=== PATIENT | female | born 1965 | race Caucasian/White ===

== ENCOUNTER 2018-01-27 20:27 | Inpatient (IN) | payer BC ==
[2018-01-27 20:46] LABS: #Basophils 0.1 thou/uL (0.0-0.2); #Eosinphils 0.3 thou/uL (0.0-0.7); #Lymphocytes 5.1 thou/uL (1.20-3.40); #Monocytes 0.9 thou/uL (0.11-0.59); #Neutrophils 13.1 thou/uL (1.40-6.50); %Basophils 0.5 % (0.0-1.0); %Eosinophils 1.6 % (0.0-10.0); %Monocytes 4.8 % (0.0-10.0); %Neutrophils 67.1 % (42.0-75.0); Hemoglobin 16.8 g/dL (12.0-16.0); Mean Corpuscular HGB CONC 32.8 g/dL (32.0-36.0); Mean Corpuscular Hemoglobin 29.7 pg (27.0-31.0); Mean Corpuscular Volume 90.4 fL (78.0-98.0); Mean Platelet Volume 10.6 fL (7.4-10.4); Platelet Count 189 thou/uL (130-400); RBC Distribution Width 12.4 % (11.5-14.5); Red Blood Cell (RBC) Count 5.67 mill/uL (4.20-5.40); White Blood Cell (WBC) Count 19.5 thou/uL (4.8-10.8)
--- NOTE | 2018-01-27 21:01 | RAD ---
PORTABLE UPRIGHT CHEST ONE VIEW: 01/27/18 HISTORY: 52-year-old female with history of chest pain which began this afternoon. Monitor leads overlie the chest. Mild increased markings in the right infrahilar region and lower lob e. This appear more prominent than the left and could represent some early or mild atypical pneumonia or pneumonitis. The left lung is clear. The heart size is normal. IMPRESSION: Increased markings with probable minimal patchy infiltrate in the right lower lobe infrahilar region raising concern for minimal atypical pneumonia or pneumonitis. Correlate clinically. Consider followu p with upright PA and lateral chest whenever the patient can undergo that study. POS: [facility]
[2018-01-27 21:10] LABS: ALT (SGPT) 18 U/L (8-55); AST (SGOT) 15 U/L (5-34); Albumin 4.5 g/dL (3.5-5.0); Alkaline Phosphatase 114 U/L (40-150); Anion Gap 20 mmol/L (10-20); BUN (Urea Nitrogen) 7 mg/dL (9.8-20.1); Bilirubin, Total 0.4 mg/dL (0.2-1.2); Calc. Creatinine Clearance 0 mL/min (70-130); Calcium 9.9 mg/dL (7.8-10.44); Carbon Dioxide 19 mmol/L (22-29); Chloride 101 mmol/L (98-107); Estimated GFR-MDRD 56; Globulin 3.6 g/dL (2.4-3.5); Glucose 395 mg/dL (70-105); Potassium 3.6 mmol/L (3.5-5.1); Protein, Total 8.1 g/dL (6.0-8.3); Sodium 136 mmol/L (136-145)
[2018-01-27 21:13] LABS: CKMB 1.4 ng/mL (0-6.6); Troponin I Less than 0.010 ng/mL (< 0.028)
[2018-01-27] MEDS ORDERED: cefTRIAXone\\ROCEPHIN 2 GM VIAL ONE (21:53)
[2018-01-27] MEDS ORDERED: Sodium Chloride 0.9% 100 ML ONE ×2 (21:53→22:23)
[2018-01-27] MEDS ORDERED: Acetaminophen 500 MG TAB PO PRN (22:10)
[2018-01-27] MEDS ORDERED: hydrALAZINE 20 MG/ML VIAL SLOW IVP PRN (22:10)
[2018-01-27] MEDS ORDERED: Ondansetron PF 4 MG/2 ML Vial IVP PRN (22:10)
[2018-01-27] MEDS ORDERED: Benzonatate 100 MG CAP PO PRN (22:10)
[2018-01-27] MEDS ORDERED: Diabetic Tussin 200 MG/10 ML UDCUP PO PRN (22:10)
[2018-01-27] MEDS ORDERED: cloNIDine 0.1 MG TAB PO PRN (22:10)
[2018-01-27] MEDS ORDERED: Nitroglycerin 0.4 MG TAB (25 Tab Bottle) SL PRN (22:10)
[2018-01-27] MEDS ORDERED: Bisacodyl 5 MG TAB PO PRN (22:10)
[2018-01-27] MEDS ORDERED: Senokot S 8.6-50 MG TAB PO PRN (22:10)
[2018-01-27 22:13] LABS: Bilirubin Negative (Negative); Blood, Urine Negative (Negative); Clarity CLEAR (Clear); Glucose, Urine (Dipstick) >=1000 mg/dL (Negative); Leukocyte Negative (Negative); Nitrite Negative (Negative); Protein, Urine (Dipstick) Negative (Neg-Trace); Specific Gravity, Urine 1.028 (1.002-1.036); Urobilinogen 0.2 mg/dL (0.2-1.0); pH, Urine 5.5 (5.0-9.0)
[2018-01-27] MEDS ORDERED: Piperacillin/Tazobactam 3.375 GM VIAL ONE (22:23)
[2018-01-27 22:29] LABS: Hemoglobin A1c 10.6 % (4.0-6.0)
[2018-01-27] MEDS ORDERED: HumaLOG 300 UNITS/3 ML VIAL SC PRN (23:09)
[2018-01-27] MEDS ORDERED: Dextrose 50% Abboject 50 ML SYRINGE SLOW IVP PRN (23:09)
[2018-01-27] MEDS ORDERED: Dextrose 5% in Water 1,000 ML IV PRN (23:09)
[2018-01-27] MEDS: Sodium Chloride 0.9% 1,000 ML IV SCH (23:34)
[2018-01-27] MEDS: Azithromycin 500 MG in Sodium Chloride 0.9% 250 ML 250 ML IVPB SCH (23:35)
[2018-01-28 00:01] VITALS: BMI 31.5
[2018-01-28 00:02] LABS: Troponin I 0.053 ng/mL (< 0.028)
[2018-01-28 00:44] LABS: Legionella Urinary Ag Negative (Negative); Strep pneumo Urine Ag NEGATIVE (NEGATIVE)
[2018-01-28] MEDS: Ondansetron PF 4 MG/2 ML Vial IVP PRN ×2 (00:54→21:05)
[2018-01-28] MEDS: traMADol HCl 50 MG TAB PO PRN ×3 (00:54→17:01)
[2018-01-28 02:49] LABS: #Basophils 0.1 thou/uL (0.0-0.2); #Eosinphils 0.3 thou/uL (0.0-0.7); #Lymphocytes 3.9 thou/uL (1.20-3.40); #Monocytes 0.6 thou/uL (0.11-0.59); #Neutrophils 8.1 thou/uL (1.40-6.50); %Basophils 0.9 % (0.0-1.0); %Eosinophils 2.2 % (0.0-10.0); %Monocytes 4.6 % (0.0-10.0); %Neutrophils 62.3 % (42.0-75.0); Mean Corpuscular HGB CONC 34.2 g/dL (32.0-36.0); Mean Corpuscular Hemoglobin 31.1 pg (27.0-31.0); Mean Corpuscular Volume 90.8 fL (78.0-98.0); Mean Platelet Volume 10.3 fL (7.4-10.4); Platelet Count 144 thou/uL (130-400); RBC Distribution Width 12.2 % (11.5-14.5); Red Blood Cell (RBC) Count 4.84 mill/uL (4.20-5.40); White Blood Cell (WBC) Count 13.1 thou/uL (4.8-10.8)
[2018-01-28 03:15] LABS: Troponin I 0.056 ng/mL (< 0.028)
[2018-01-28 03:35] LABS: Anion Gap 14 mmol/L (10-20); BUN (Urea Nitrogen) 10 mg/dL (9.8-20.1); Calc. Creatinine Clearance 113 mL/min (70-130); Calcium 8.9 mg/dL (7.8-10.44); Carbon Dioxide 21 mmol/L (22-29); Chloride 107 mmol/L (98-107); Estimated GFR-MDRD 78; Glucose 295 mg/dL (70-105); Potassium 4.2 mmol/L (3.5-5.1); Sodium 138 mmol/L (136-145)
--- NOTE | 2018-01-28 04:27 | HP ---
DATE OF ADMISSION: 01/27/2018 The patient was seen prior to midnight. PRIMARY CARE PHYSICIAN: None. The patient does not see a physician at all. CHIEF COMPLAINT: Chest pain and shortness of breath. HISTORY OF PRESENT ILLNESS: Ms. Orozco is a 52-year-old female with unknown past medical history as e does not follow up with a physician at all, presented to the emergency room with the above-mentione d complaint. History is mainly obtained by the patient herself and electronic medical records have b een reviewed. Case has been discussed with admitting ER physician. Ms. Orozco presented to the ER with complaints of 2 or 3 days' worth of chest pain. She describes it a s sharp and located substernally without any significant radiation. She denies any palpitation or di aphoresis with it. She denies any arm or jaw paresthesias. She does have some shortness of breath a ssociated with these symptoms today and they concerned her enough for her to be presenting to the ER today. She continues to smoke heavily at 1 pack per day for at least the last 20 years or more. Upon presentation to the ER, she was found to be hypertensive with a blood pressure of 208/128. She denies having ever been told that she has hypertension, but did recall that she has been having heada kiki and some ringing sensation in the ear. She underwent general workup including a chest x-ray, whi ch showed possible right lower lobe infiltrate. Her 12-lead EKG was rather unremarkable without any acute ST or T-wave changes. It did show possibility of left atrial enlargement and sinus tachycardia at 127 beats per minute. She was given IV Zosyn and Rocephin as well as full dose aspirin along wit h IV fluids. She was found to have leukocytosis as well on workup with a WBC count of 19.5 without a ny significant neutrophilia. Her blood sugar was also found to be elevated at 395 and the patient de nies any history of diabetes, though she has significant family history of diabetes in both of her pa rents. She is now being admitted to hospital with possible pneumonia as well as uncontrolled hypertension an d possibly diabetes mellitus, new diagnosis. PAST MEDICAL HISTORY: None as the patient has not followed up with any physician in multiple decades . PAST SURGICAL HISTORY: 1. section. 2. Right knee replacement in 01/2015. 3. History of vocal cord polyp removal. 4. Hysterectomy. 5. Multiple surgeries for ovarian cyst. PSYCHIATRIC HISTORY: Denies any anxiety or depression. SOCIAL HISTORY: Smokes 1 pack of cigarettes per day and drinks 5-6 beer on the weekends. Denies any drug abuse. FAMILY HISTORY: Significant for multiple cardiac aneurysms in her father. He also had AAA, which wa s unrepaired. Her mother had quadruple bypass and kidney cancer with lung metastasis. She also repo rts diabetes mellitus in both of her parents. ALLERGIES: LATEX and MORPHINE. CURRENT MEDICATIONS: None. CODE STATUS: Full code. Discussed with the patient. REVIEW OF SYSTEMS: A 12-point review of systems was done, which is negative except for those mention ed in the history and physical. LABORATORY DATA: CBC showed WBCs 19.5, hemoglobin 16.8. D-dimer less than 0.27. Serum chemistry is unremarkable except for a glucose of 395. Cardiac enzymes within normal limit. Urinalysis shows gl ucosuria and ketones. Chest x-ray by my review shows possible right lower lobe infiltrate, no pulmon rosalia edema, suspect atypical pneumonia or pneumonitis. A 12-lead EKG by my review shows no acute ST o r T-wave changes. PHYSICAL EXAMINATION: VITAL SIGNS: Most recent temperature 98.5, pulse of 101, respirations 18, saturating 93% on room air , blood pressure 158/90. GENERAL: No acute distress. She does appear somewhat anxious, but awake, alert and oriented x3. HEENT: Mucous membrane is moist and pink. No oropharyngeal exudate or erythema. Head is normocepha lic, atraumatic. Pupils equal and reactive to light and accommodation. Extraocular movements intact . NECK: Supple without any lymphadenopathy, JVD or bruit. CHEST: Clear to auscultation without any wheezing, rales or rhonchi. Rate and rhythm is regular wit hout any murmur, rubs or gallops. ABDOMEN: Soft, nontender, nondistended with positive bowel sounds. EXTREMITIES: Free of any cyanosis, clubbing or edema. NEUROLOGIC: Nonfocal. SKIN: Free of any rashes or bruises. Feels warm and dry to touch. PSYCHIATRIC: Anxiety noticed. IMPRESSION AND PLAN: 1. Community-acquired pneumonia. The patient will be treated with IV antibiotics, namely Rocephin a nd azithromycin with IV fluids per the sepsis protocol. Urine culture and blood cultures have been o btained and will be monitored. We will check urinary legionella and pneumococcal antigens. We will also check respiratory viral pathogen by NAAT. 2. Sepsis, likely secondary to community-acquired pneumonia. Treat as per sepsis protocol with IV a ntibiotics and IV fluids and follow the final results of the culture. Urinalysis was done for comple tion and did not show any evidence of urinary tract infection. 3. New diagnosis of diabetes mellitus. I have checked the patient's hemoglobin A1c and it came back elevated at more than 10. The patient will be treated with insulin sliding scale while in the hospi meng, but I have briefly discussed with the long-term options for her. She will be started on metform in prior to discharge with close followup with the primary care physician. We will have dietitian ambrose lk to her for diabetic education. 4. Hypertension. Currently we will monitor it and use p.r.n. antihypertensives. If it continues to be elevated, she would benefit from starting on preferably ANDREW inhibitors or ARBs given the new diag nosis of diabetes mellitus. 5. Tobacco abuse. The patient has been extensively counseled. 6. Family history of coronary artery disease. 7. Code status: Full code. Discussed with the patient. 8. Chest pain, likely secondary to community-acquired pneumonia. Serial cardiac enzymes will be jones nded. We will add nebulizers and oxygen as needed. 9. Add deep venous thrombosis and gastrointestinal prophylaxis and p.r.n. medication order. DISPOSITION: Ms. Orozco is currently being admitted to the hospital for community-acquired pneumonia a nd uncontrolled hypertension with new diagnosis of diabetes as well. Compliance is emphasized as wel l as tobacco abstinence. Further management will depend upon her clinical course, but estimated length of stay at this time is at least 2-3 midnights.
[2018-01-28] MEDS: Acetaminophen 325 MG TAB PO PRN ×2 (06:28→21:05)
[2018-01-28] MEDS: HumaLOG 300 UNITS/3 ML VIAL SC PRN ×3 (06:31→17:05)
[2018-01-28] MEDS: Aspirin 81 mg Enteric Coated Tablet PO SCH (09:20)
[2018-01-28] MEDS: guaiFENesin ER 600 MG TAB PO SCH ×2 (09:20→21:04)
[2018-01-28] MEDS: Enoxaparin Sodium 40 MG/0.4 ML SYRINGE SC SCH (09:21)
[2018-01-28] MEDS: Famotidine 20 MG TAB PO SCH ×2 (09:21→21:05)
[2018-01-28] MEDS: Sodium Chloride 0.9% 1,000 ML IV SCH (14:20)
--- NOTE | 2018-01-28 15:02 | PDOC.PN ---
- Subjective Encounter Start Date: 01/28/18 Encounter Start Time: 12:37 Ms. Orozco was seen today in follow-up of Pneumonia, and newly diagnosed diabetes mellitus. She says she is feeling a little better today but still has some chest pain and cough. She is also a bit anxious about being diagnosed with diabetes mellitus. - Objective MAR Reviewed: Yes Vital Signs & Weight: Vital Signs (12 hours) Temp Pulse Resp BP Pulse Ox 01/28/18 11:55 98.3 F 72 16 142/89 H 94 L 01/28/18 08:00 95 01/28/18 07:55 98.2 F 81 18 142/88 H 95 01/28/18 04:00 98.1 F 90 18 159/87 H 93 L Weight Weight 189 lb 5 oz I&O: 01/27/18 01/28/18 01/29/18 06:59 06:59 06:59 Intake Total 1350 Balance 1350 Result Diagrams: 01/28/18 02:42 01/28/18 02:42 Additional Labs: Accuchecks 01/28/18 05:57 POC Glucose 231 H Phys Exam - Physical Examination HEENT: PERRLA, sclera anicteric Respiratory: no wheezing + rales at the right base, + rhonchi Cardiovascular: RRR, no significant murmur, no rub Gastrointestinal: soft, non-tender, no distention, positive bowel sounds Musculoskeletal: no edema, pulses present Dx/Plan (1) Pneumonia, community acquired Code(s): J18.9 - PNEUMONIA, UNSPECIFIED ORGANISM Status: Acute (2) Diabetes mellitus type 2 in obese Code(s): E11.69 - TYPE 2 DIABETES MELLITUS WITH OTHER SPECIFIED COMPLICATION; E66.9 - OBESITY, UNSPECIFIED Status: Acute (3) Hypertension Code(s): I10 - ESSENTIAL (PRIMARY) HYPERTENSION Status: Acute - Plan * Pneumonia- continue Azithromycin and Rocephin _ WBC count has improved, and there has been no fever * New Onset DM- will start Metformin. Continue SSI. Management Consultant has been consulted * HTN- blood pressure has been elevated as well. She has not seen a physician in 2 years- will start Lisinopril * Likely home tomorrow with new medication for Diabetes and hypertension, and oral antibiotics.
[2018-01-28] MEDS: metFORMIN 500 MG TAB PO SCH (17:02)
[2018-01-28] MEDS: Azithromycin 500 MG in Sodium Chloride 0.9% 250 ML 250 ML IVPB SCH (21:06)
[2018-01-28] MEDS ORDERED: cefTRIAXone\\ROCEPHIN 1 GM in Sodium Chloride 0.9% 100 ML IVPB SCH (22:00)
[2018-01-29] MEDS: Acetaminophen 325 MG TAB PO PRN (02:34)
[2018-01-29 03:27] LABS: #Basophils 0.1 thou/uL (0.0-0.2); #Eosinphils 0.2 thou/uL (0.0-0.7); #Lymphocytes 4.1 thou/uL (1.20-3.40); #Monocytes 0.4 thou/uL (0.11-0.59); #Neutrophils 3.6 thou/uL (1.40-6.50); %Basophils 1.1 % (0.0-1.0); %Eosinophils 2.8 % (0.0-10.0); %Lymphocytes 48.5 % (21.0-51.0); %Monocytes 5.2 % (0.0-10.0); %Neutrophils 42.4 % (42.0-75.0); Hemoglobin 13.3 g/dL (12.0-16.0); Mean Corpuscular HGB CONC 33.1 g/dL (32.0-36.0); Mean Corpuscular Hemoglobin 30.3 pg (27.0-31.0); Mean Corpuscular Volume 91.4 fL (78.0-98.0); Mean Platelet Volume 10.1 fL (7.4-10.4); Platelet Count 121 thou/uL (130-400); RBC Distribution Width 12.1 % (11.5-14.5); Red Blood Cell (RBC) Count 4.38 mill/uL (4.20-5.40); White Blood Cell (WBC) Count 8.4 thou/uL (4.8-10.8)
[2018-01-29 03:51] LABS: Anion Gap 10 mmol/L (10-20); BUN (Urea Nitrogen) 10 mg/dL (9.8-20.1); Calc. Creatinine Clearance 141 mL/min (70-130); Calcium 8.3 mg/dL (7.8-10.44); Carbon Dioxide 22 mmol/L (22-29); Chloride 107 mmol/L (98-107); Estimated GFR-MDRD Greater than 90; Glucose 200 mg/dL (70-105); Potassium 3.7 mmol/L (3.5-5.1); Sodium 135 mmol/L (136-145)
[2018-01-29] MEDS: Sodium Chloride 0.9% 1,000 ML IV SCH (06:08)
[2018-01-29] MEDS: HumaLOG 300 UNITS/3 ML VIAL SC PRN ×2 (06:16→11:03)
[2018-01-29] MEDS: traMADol HCl 50 MG TAB PO PRN (08:16)
[2018-01-29] MEDS: Aspirin 81 mg Enteric Coated Tablet PO SCH (08:17)
[2018-01-29] MEDS: metFORMIN 500 MG TAB PO SCH (08:18)
[2018-01-29] MEDS: Famotidine 20 MG TAB PO SCH (08:18)
[2018-01-29] MEDS: guaiFENesin ER 600 MG TAB PO SCH (08:18)
[2018-01-29] MEDS: Enoxaparin Sodium 40 MG/0.4 ML SYRINGE SC SCH (08:21)
[2018-01-29] MEDS ORDERED: Lisinopril 5 MG TAB PO SCH (09:00)
[2018-01-29 11:21] VITALS: BP 154/93; TEMP 98.7
--- NOTE | 2018-01-29 13:04 | DIS ---
PRIMARY CARE PHYSICIAN: None. DATE OF ADMISSION: 01/27/2018 DATE OF DISCHARGE: 01/29/2018 DISCHARGE DIAGNOSES: 1. Acute bacterial community-acquired pneumonia. 2. Sepsis, present on admission secondary to bronchitis. 3. Diabetes mellitus type 2, new onset with hyperglycemia. 4. Ongoing tobacco abuse. 5. Asymptomatic essential hypertension. CONSULTATIONS: None. PROCEDURES: None. HISTORY AND PHYSICAL: Ms. Orozco is a 52-year-old female with history of tobacco abuse, hypertension, who presents to the emergency department with chest pain and shortness of breath. Workup in the [facility] showed white blood cell count 19.5, undetectable. D-dimer, normal cardiac enzymes, possible right lower lobe infiltrate. Pulse was 101 on admission. She met sepsis criteria and was started on antibiotics and we were subsequently called her admission. HOSPITAL COURSE: The patient was seen and examined by Dr. Tamayo and placed on Rocephin and azithro mycin. She was noted to have a blood sugar over 200 and was started on metformin 500 b.i.d. Sugars improved some, hemoglobin A1c was checked and found to be 10.6. She was given antibiotics and from 01/27/2018 to 01/28/2018, her symptoms improved. By today, her sugars were fairly stable. It is running in the high 100s to low 200s. Her breathing was good. She was on room air and was stable for discharge with outpatient followup. She was seen b y the dietitian to instruct her on a diabetic diet. PHYSICAL EXAMINATION: The patient was seen and examined on the day of discharge. Discharge plan and disposition was discussed with patient face to face at the bedside. DISCHARGE MEDICATIONS: 1. Doxycycline 100 mg p.o. b.i.d. for 5 more days. 2. Guaifenesin ER 1200 mg p.o. b.i.d. 3. Lisinopril 5 mg daily. 4. Metformin 500 mg p.o. b.i.d. FOLLOWUP APPOINTMENTS: Primary care physician. The patient is to be establishing with a new primary care physician next week. DISCHARGE CONDITION: Stable. DISPOSITION: Discharged home via vehicle. DISCHARGE DIET: Heart healthy diabetic diet recommended. DISCHARGE ACTIVITY: As tolerated.
== END 2018-01-29 14:07 | disposition home or self-care (01) | DRG 871 ==
LOC: ERS 20:27 → 2SE 23:01
PROVIDERS: ADMIT Internal Medicine; ATTEND Internal Medicine
DX: A41.9 Sepsis, unspecified organism (principal); J15.9 Unspecified bacterial pneumonia; E66.9 Obesity, unspecified; I10 Essential (primary) hypertension; Z91.81 History of falling; F17.210 Nicotine dependence, cigarettes, uncomplicated; I16.0 Hypertensive urgency; J40 Bronchitis, not specified as acute or chronic; E11.65 Type 2 diabetes mellitus with hyperglycemia; Z68.31 Body mass index [BMI] 31.0-31.9, adult
CPT/HCPCS: 36415; 36416; 71045; 80048; 80053; 81003; 82553; 83036; 84484; 85025; 85379; 87040; 87086; 87633; 87899; 90471; 90732; 93005; 94760; 96361; 96365; 96367; G0009; J0456; J0696; J1650; J2405; J2543; J7050

== ENCOUNTER 2018-02-02 21:04 | Inpatient (IN) | payer BC ==
[2018-02-02] MEDS ORDERED: Nitroglycerin 0.4 MG TAB (25 Tab Bottle) ONE (21:19)
[2018-02-02] MEDS ORDERED: Nitroglycerin 100MG/250ML BOT 250 ML ONE (21:22)
[2018-02-02] MEDS ORDERED: Lidocaine 1% (PF) 30 ML VIAL ONE (21:22)
[2018-02-02] MEDS ORDERED: Heparin 10,000 UNITS/1 ML VIAL ONE (21:22)
[2018-02-02 21:23] LABS: Hemoglobin 15.7 g/dL (12.0-16.0); Mean Corpuscular HGB CONC 33.5 g/dL (32.0-36.0); Mean Corpuscular Hemoglobin 30.8 pg (27.0-31.0); Mean Corpuscular Volume 91.9 fL (78.0-98.0); Mean Platelet Volume 10.2 fL (7.4-10.4); Platelet Count 221 thou/uL (130-400); RBC Distribution Width 12.3 % (11.5-14.5); Red Blood Cell (RBC) Count 5.11 mill/uL (4.20-5.40); White Blood Cell (WBC) Count 21.4 thou/uL (4.8-10.8)
[2018-02-02 21:28] LABS: INR-International Normal Ratio 1.1
[2018-02-02 21:32] LABS: PTT 134.8 SEC (22.9-36.1)
[2018-02-02 21:40] LABS: Band 3 % (5-11); Lymphocytes 24 % (21-51); MDiff Complete? YES; Monocytes 3 % (0-10); Neutrophil 70 % (42-75); PLT Morphology Comment Appears Adequate; RBC Morphology Normal
--- NOTE | 2018-02-02 21:45 | RAD ---
PORTABLE UPRIGHT FRONTAL CHEST RADIOGRAPH 02/02/18 COMPARISON: 01/27/18 HISTORY: Chest pain. FINDINGS: There is increased linear interstitial density in the perihilar regions in both lung bases, not signi ficantly changed when compared to the prior exam. There is no pneumothorax, pleural fluid, focal cons olidation or alveolar edema. IMPRESSION: Perihilar and bibasilar interstitial prominence, not significantly changed. Thus, this is likely on t he basis of chronic interstitial prominence. A degree of interstitial edema cannot be excluded. POS: [facility]
[2018-02-02 21:50] LABS: ALT (SGPT) 25 U/L (8-55); AST (SGOT) 18 U/L (5-34); Albumin 4.2 g/dL (3.5-5.0); Alkaline Phosphatase 92 U/L (40-150); Anion Gap 17 mmol/L (10-20); BUN (Urea Nitrogen) 10 mg/dL (9.8-20.1); Bilirubin, Total 0.4 mg/dL (0.2-1.2); CK (CPK) 53 U/L (29-168); Calc. Creatinine Clearance 0 mL/min (70-130); Calcium 9.9 mg/dL (7.8-10.44); Carbon Dioxide 19 mmol/L (22-29); Chloride 104 mmol/L (98-107); Estimated GFR-MDRD 78; Globulin 3.3 g/dL (2.4-3.5); Glucose 262 mg/dL (70-105); Potassium 3.4 mmol/L (3.5-5.1); Protein, Total 7.5 g/dL (6.0-8.3); Sodium 137 mmol/L (136-145)
[2018-02-02 21:52] LABS: CKMB 1.5 ng/mL (0-6.6); Troponin I 0.019 ng/mL (< 0.028)
[2018-02-02] MEDS ORDERED: Verapamil 5 MG/2 ML VIAL ONE ×2 (21:53→22:01)
[2018-02-02] MEDS ORDERED: hydrALAZINE 20 MG/ML VIAL ONE (22:02)
[2018-02-02] MEDS ORDERED: Ondansetron PF 4 MG/2 ML Vial ONE (22:02)
[2018-02-02] MEDS ORDERED: Nitroglycerin 2% Ointment 1 INCH/1 GM Packet ONE (22:18)
[2018-02-02] MEDS ORDERED: Aggrastat 12.5 MG/250 ML 250 ML ONE (22:35)
[2018-02-02] MEDS ORDERED: TICAGRELOR 90 MG TABLET ONE (23:25)
[2018-02-02] MEDS ORDERED: Morphine 4 MG/ML VIAL SLOW IVP PRN (23:43)
[2018-02-02] MEDS ORDERED: Aggrastat 12.5 MG/250 ML 12.5 MG in Premix Bag 1 BAG IVPB SCH (23:43)
[2018-02-02] MEDS ORDERED: Nitroglycerin 0.4 MG TAB (25 Tab Bottle) SL PRN (23:43)
[2018-02-02] MEDS ORDERED: cloNIDine 0.1 MG TAB PO PRN (23:43)
[2018-02-02] MEDS ORDERED: Sodium Chloride 0.9% 1,000 ML IV SCH (23:45)
[2018-02-02] MEDS ORDERED: Morphine 2 MG/ML SYRINGE ONE (23:46)
[2018-02-02] MEDS ORDERED: Zolpidem Tartrate 5 MG TAB PO PRN (23:48)
[2018-02-02] MEDS ORDERED: Dextrose 5% in Water 1,000 ML IV PRN (23:50)
[2018-02-02] MEDS ORDERED: Dextrose 50% Abboject 50 ML SYRINGE IVP PRN (23:50)
[2018-02-03] VITALS: BMI 28.9
[2018-02-03] MEDS ORDERED: Morphine 2 MG/ML SYRINGE SLOW IVP PRN (00:20)
[2018-02-03] MEDS ORDERED: Zolpidem Tartrate 5 MG TAB ONE (00:44)
[2018-02-03] MEDS ORDERED: Morphine 4 MG/ML VIAL ONE (04:04)
--- NOTE | 2018-02-03 04:09 | HP ---
DATE OF ADMISSION: 02/02/2018 INDICATION FOR PROCEDURE: A 52-year-old female felt that have an acute anterior myocardial infarction. HISTORY OF PRESENT ILLNESS: This very unfortunate 52-year-old female who had some chest discomfort last week was in the emergency room, was diagnosed with pneumonia, also had new onset diabetes. She has noticed that she has some pain on and off during the week and then about an hour ago, she started having more significant pain in the chest radiating to the right neck area and also to the back. She also became nauseated, diaphoretic. She presented to emergency room. White blood cell count was 21,000. She continues to have pain. She has been given nitroglycerin as well as heparin and the pain is persisting. She is very uncomfortable appearing. She has also had a low-grade fever. She has been given 4000 units of heparin as well as nitroglycerin. She was given, I believe a physician in the last time, she was in the emergency room, but she has not seen any physician. She does not routinely follow up physicians. She has not seen by recently. She continues to smoke. She smoked up to a pack a day for 20 years and recently drop down to about half a pack a day. She also has hypertension and diabetes, uncertain about the cholesterol level. ALLERGIES: She is allergic to LATEX AND MORPHINE. SOCIAL HISTORY: She is . She continues to smoke. She has alcohol 3 to 5 beers on the weekend. She is a stay at home . MEDICATIONS: At home included metformin. She has been on doxycycline, lisinopril, Mucinex, and Tylenol. REVIEW OF SYSTEMS: She wears glasses. She continues to smoke. She has some dizziness. Otherwise, review of systems, 12-point review of systems unremarkable except what was noted in the history of present illness. PHYSICAL EXAMINATION: GENERAL: Reveals a middle-aged female who is in some mild distress at this time and is not comfortable. She is unable to sit down or lie down just very long. She continues to rise in the bed and says that she is having chest pain and back pain. She describes just as a pain. She has no longer diaphoretic. VITAL SIGNS: Her blood pressure is 174/115, heart rates in the 70s and shows a sinus rhythm, decreased R-wave in V1 through V3. Previously, she did have an R- wave in V3 and EKG approximately a week ago. At this time, the R-wave has decreased further. She has slight ST segment elevation in V4. HEENT: Shows head to be normocephalic and atraumatic. Carotid pulses are present. I did not hear any significant bruits. CHEST: Clear to auscultation. No rales, rhonchi, or wheezing. CARDIOVASCULAR: Exam reveals a regular rate and rhythm, normal S1, S2 noted. There were no significant S3, S4 noted. There were no significant murmurs, heaves, thrills, bruits, or rubs. ABDOMEN: Shows obesity with positive bowel sounds. No organomegaly or masses are noted. Femoral pulses are present. EXTREMITIES: Showed no clubbing, cyanosis, or edema. Pedal pulses are also present. NEUROLOGIC: She appears to be intact. SKIN: Warm and dry. EKG as noted shows sinus rhythm with decreased R-wave progression in V1 through V3 and also slight ST segment elevation in V4. No significant reciprocal changes are noted. She will be advised to undergo cardiac catheterization in the emergent basis to determine whether or not she has any severe underlying coronary artery disease. If not, then she may be having an aortic problem, but she has been given heparin, did not see anything otherwise acute on the EKG except for the mild ST segment elevations in V4. Given her degree of discomfort and pain, the EKG does not necessarily correlate with what I am seeing at this time, but just to be on the safe side, she will be advised to undergo cardiac catheterization. We did discuss the procedure and the risks to include bleeding, infection, possibly a myocardial infarction, CVA, renal insufficiency, allergic contrast reaction even the possibility of . She understands and agrees to proceed with emergent cardiac catheterization and then she continues to have chest pain. IMPRESSION: 1. Acute anterior MT, STEMI, ongoing continued chest pain. Emergent cardiac cath. 2. History of diabetes. This will be dealt with by the primary care service. 3. History of tobacco abuse. She has been encouraged to stop smoking in the past. 4. Recent diagnosis of pneumonia. We will continue to follow this. 5. Elevated white blood cell count of 21,000 previously was about 19,000. She has been on antibiotics and we will need to continue these medications at this time. Further recommendations will be after the cardiac catheterization to evaluate for possible underlying coronary artery disease. JACLYN
[2018-02-03 05:14] LABS: ALT (SGPT) 51 U/L (8-55); AST (SGOT) 259 U/L (5-34); Alkaline Phosphatase 86 U/L (40-150); Anion Gap 17 mmol/L (10-20); BUN (Urea Nitrogen) 9 mg/dL (9.8-20.1); Bilirubin, Total 0.4 mg/dL (0.2-1.2); Calc. Creatinine Clearance 118 mL/min (70-130); Calcium 9.1 mg/dL (7.8-10.44); Carbon Dioxide 20 mmol/L (22-29); Chloride 106 mmol/L (98-107); Estimated GFR-MDRD 90; Globulin 2.9 g/dL (2.4-3.5); Glucose 278 mg/dL (70-105); Potassium 3.5 mmol/L (3.5-5.1); Protein, Total 6.9 g/dL (6.0-8.3); Sodium 139 mmol/L (136-145)
[2018-02-03 06:09] LABS: #Basophils 0.1 thou/uL (0.0-0.2); #Lymphocytes 2.9 thou/uL (1.20-3.40); #Monocytes 0.8 thou/uL (0.11-0.59); #Neutrophils 16.4 thou/uL (1.40-6.50); %Basophils 0.3 % (0.0-1.0); %Eosinophils 0.2 % (0.0-10.0); %Lymphocytes 14.4 % (21.0-51.0); %Monocytes 3.9 % (0.0-10.0); %Neutrophils 81.1 % (42.0-75.0); Hemoglobin 15.2 g/dL (12.0-16.0); Mean Corpuscular HGB CONC 33.1 g/dL (32.0-36.0); Mean Corpuscular Hemoglobin 29.6 pg (27.0-31.0); Mean Corpuscular Volume 89.4 fL (78.0-98.0); Platelet Count 235 thou/uL (130-400); RBC Distribution Width 12.2 % (11.5-14.5); Red Blood Cell (RBC) Count 5.14 mill/uL (4.20-5.40); White Blood Cell (WBC) Count 20.2 thou/uL (4.8-10.8)
[2018-02-03 06:48] LABS: Troponin I 139.795 ng/mL (< 0.028)
[2018-02-03] MEDS ORDERED: HumaLOG 300 UNITS/3 ML VIAL ONE (07:27)
[2018-02-03] MEDS: HumaLOG 300 UNITS/3 ML VIAL SC PRN ×2 (07:30→11:01)
[2018-02-03] MEDS ORDERED: Aspirin 81 mg Enteric Coated Tablet ONE (08:53)
[2018-02-03] MEDS ORDERED: Lisinopril 10 MG TAB ONE (08:54)
[2018-02-03] MEDS: Lisinopril 10 MG TAB PO SCH ×2 (08:58→20:19)
[2018-02-03] MEDS: Carvedilol 6.25 MG TAB PO SCH ×2 (08:59→20:19)
[2018-02-03] MEDS ORDERED: Lisinopril 5 MG TAB PO SCH (09:00)
[2018-02-03] MEDS ORDERED: Carvedilol 3.125 MG TAB PO SCH ×2 (09:00→11:00)
[2018-02-03] MEDS: Carvedilol 3.125 MG TAB ONE ×2 (09:14→10:49)
[2018-02-03] MEDS: Ondansetron PF 4 MG/2 ML Vial ONE (09:30)
[2018-02-03] MEDS ORDERED: Carvedilol 3.125 MG TAB ONE (10:45)
[2018-02-03] MEDS ORDERED: ALPRAZolam 0.25 MG TAB ONE (10:45)
[2018-02-03] MEDS: Cefuroxime Axetil 250 MG TAB PO SCH ×2 (10:49→20:18)
[2018-02-03] MEDS: TICAGRELOR 90 MG TABLET PO SCH ×2 (10:49→20:18)
[2018-02-03] MEDS ORDERED: ALPRAZolam 0.25 MG TAB PO PRN (11:01)
[2018-02-03 11:42] LABS: #Eosinphils 0.1 thou/uL (0.0-0.7); #Lymphocytes 3.4 thou/uL (1.20-3.40); #Monocytes 0.8 thou/uL (0.11-0.59); #Neutrophils 11.4 thou/uL (1.40-6.50); %Basophils 0.1 % (0.0-1.0); %Eosinophils 0.3 % (0.0-10.0); %Lymphocytes 21.5 % (21.0-51.0); %Monocytes 5.3 % (0.0-10.0); %Neutrophils 72.8 % (42.0-75.0); Hemoglobin 14.1 g/dL (12.0-16.0); Mean Corpuscular HGB CONC 33.3 g/dL (32.0-36.0); Mean Corpuscular Hemoglobin 30.4 pg (27.0-31.0); Mean Corpuscular Volume 91.2 fL (78.0-98.0); Mean Platelet Volume 9.8 fL (7.4-10.4); Platelet Count 199 thou/uL (130-400); RBC Distribution Width 12.3 % (11.5-14.5); Red Blood Cell (RBC) Count 4.65 mill/uL (4.20-5.40); White Blood Cell (WBC) Count 15.6 thou/uL (4.8-10.8)
[2018-02-03] MEDS ORDERED: glipiZIDE 10 MG TAB PO SCH (11:49)
[2018-02-03] MEDS: Sodium Chloride 0.9% 1,000 ML IV SCH ×2 (12:37→23:28)
[2018-02-03 12:41] LABS: Critical Call Chem Troponin I RESULT DECREASING; Troponin I 109.958 ng/mL (< 0.028)
[2018-02-03] MEDS ORDERED: Nitroglycerin 2% Ointment 1 INCH/1 GM Packet TOP SCH (14:00)
[2018-02-03] MEDS: Acetaminophen 325 MG TAB PO PRN ×2 (14:01→20:18)
[2018-02-03] MEDS: Ondansetron PF 4 MG/2 ML Vial IVP PRN (14:02)
--- NOTE | 2018-02-03 15:43 | CON ---
DATE OF CONSULTATION: 02/03/2018 HISTORY OF PRESENT ILLNESS: Janee Orozco is a 52-year-old female, a 2 pack a day smoker, who w as recently discharged from the hospital with a diagnosis of presumed pneumonia, comes in last night with chest pain, left anterior radiation, nausea and vomiting. Denied any coughing or wheezing. She has previous bouts of pneumonia. She went to the cardiac microbiology lab assistant last night, Dr. Son. Please review her note and apparently a single stent was placed in. She is back in the ICU right now. The patient states that she denies any difficulty breathing on a regular day. Denies any coughing or wheezing. She takes no inhalers. PAST MEDICAL HISTORY: Recently diagnosed diabetes, hypertension. PAST SURGICAL HISTORY: , right total knee, vocal cord surgery, hysterectomy, ovarian cyst. ALLERGIES: None. SOCIAL HISTORY: She is presently unemployed. MEDICATIONS: From home had included metformin 500 twice a day, Zestril 5 a day, doxycycline 100 twic e a day. SOCIAL/FAMILY HISTORY: As noted. REVIEW OF SYSTEMS: Ten-point negative. PHYSICAL EXAMINATION: VITAL SIGNS: Sats are 97% on room air, pulse is 100, blood pressure 157/81, respiration rate 18. GENERAL: She is in no distress. CHEST: Decreased breath sounds. No wheezing. CARDIAC: Normal S1, S2. No gallops. ABDOMEN: Soft, no masses. LABORATORY DATA: White count 20,000, H and H 15 and 46, platelet count is normal. Electrolytes are normal. Troponin is elevated. IMPRESSION: 1. Acute anterior myocardial infarction, status post stent. 2. Chronic obstructive pulmonary disease with bronchitis. 3. Leukocytosis. PLAN: Continue cardiac care. Empiric p.o. antibiotics. We will follow. Consultation note, 70 minutes, 50% in direct patient care.
[2018-02-03] MEDS: glipiZIDE 5 MG TAB PO SCH (16:27)
--- NOTE | 2018-02-03 17:25 | CON ---
DATE OF CONSULTATION: 02/03/2018 REASON FOR CONSULTATION: Comanagement of medical issues. HISTORY OF PRESENT ILLNESS: The patient gives history of having retrosternal chest pain radiating to right side of her neck yesterday at around 8:30 p.m. She has had cold sweats and was shaking and wa s also associated with nausea. Patient says she had come a week back to the emergency room and was d iagnosed with pneumonia on the and was given antibiotics. She was also told she had diabetes ba sed on the labs. Her initial EKG on arrival showed anteroseptal wall STEMI and STEMI activation was done. The patient has had cardiac catheterization done by Dr. Son and has had stent placed to LAD. Currently, has no chest pain, palpitation, PND or orthopnea. No complaints of cough or fever. PAST MEDICAL/SURGICAL HISTORY: Newly diagnosed diabetes mellitus type 2, hypertension, anterior wall STEMI status post stent to LAD last night, right total knee replacement, hernia repair, hysterectomy , right breast cyst removed, ovarian cyst removed, appendectomy, polyps on her vocal cord. CURRENT MEDICATIONS: Patient was on doxycycline 100 mg twice daily, lisinopril 5 mg daily, metformin 500 mg p.o. twice daily. ALLERGIES: LATEX. PERSONAL HISTORY: Quit smoking prior to this hospitalization and was smoking one pack a day for a lo ng time. Drinks on social occasions. Does not abuse drugs. Lives with her . FAMILY HISTORY: Both parents have history of coronary artery disease and diabetes. Both are living. REVIEW OF SYSTEMS: The following complete review of systems was negative, unless otherwise mentioned in the HPI or below: Constitutional: Weight loss or gain, ability to conduct usual activities. Sk in: Rash, itching. Eyes: Double vision, pain. ENT/Mouth: Nose bleeding, neck stiffness, pain, ten derness. Cardiovascular: Palpitations, dyspnea on exertion, orthopnea. Respiratory: Shortness of breath, wheezing, cough, hemoptysis, fever or night sweats. Gastrointestinal: Poor appetite, abdomi nal pain, heartburn, nausea, vomiting, constipation, or diarrhea. Genitourinary: Urgency, frequency , dysuria, nocturia. Musculoskeletal: Pain, swelling. Neurologic/Psychiatric: Anxiety, depression . Allergy/Immunologic: Skin rash, bleeding tendency. CODE STATUS: FULL. Power of state's attorney is her . PHYSICAL EXAMINATION: GENERAL: The patient is a 52-year-old female who is currently not in any acute distress. VITAL SIGNS: Blood pressure 158/110, pulse 110 per minute, respiratory rate 18 per minute, temperatu re 98.8 degrees Fahrenheit, saturating 94% on room air. NECK: Supple, no elevated JVD. HEENT: Extraocular muscles intact. Pupils reacting to light. Oral cavity mucous membranes are mois t. No exudates or congestion. CARDIOVASCULAR: S1, S2 heard. Regular rhythm. RESPIRATORY: Air entry 1+ bilateral. Scattered rhonchi plus no wheezes. ABDOMEN: Soft, bowel sounds heard. No tenderness, rigidity or guarding. EXTREMITIES: No peripheral edema or calf tenderness. VASCULAR SYSTEM: Peripheral pulses 1+ bilateral, no ischemic ulcerations or gangrene. CENTRAL NERVOUS SYSTEM: No gross focal deficits noted. Patient is alert, awake, oriented well. PSYCHIATRIC: The patient's mood is euthymic. No hallucinations or delusions. LABORATORY AND X-RAY FINDINGS: The patient has had cardiac catheterization done yesterday by Dr. Fatmata zamora and has had stent placed to LAD. White count of 20, H and H 15 and 46, platelet count 235 with 81% neutrophils on admission. Today's white count is 15 this morning. ACT yesterday evening at 10:50 w as 253. BUN 9, creatinine 0.6, serum glucose 278. AST 259, ALT 51, alkaline phosphatase 86, total b ilirubin 0.4, troponin I 139. CK-MB 1.5. Hemoglobin A1c was 10.6 during her last admission here. C hest x-ray done on admission showed resolving pneumonia. EKG done shows anteroseptal wall ST elevati on VT. CLINICAL IMPRESSION AND PLAN: The patient is admitted to ICU post-cardiac catheterization and stenti ng to LAD. She had anterior wall VT confirmed with cardiac catheterization. She is on aspirin, Lipi tor, Coreg, lisinopril, and Brilinta for now. She is on Humalog coverage. The patient will be given oral diet and will place her on glipizide 5 mg twice daily for now. She will be on morphine p.r.n. for pain. DuoNeb q.6 hourly p.r.n. for underlying COPD with a long history of smoking. The patient has also been placed on Ceftin 250 mg twice daily in view of her recent diagnosis of pneumonia.
[2018-02-03] MEDS: Nitroglycerin 2% Ointment 1 INCH/1 GM Packet TOP SCH ×2 (17:52→23:28)
[2018-02-03 18:22] LABS: #Eosinphils 0.1 thou/uL (0.0-0.7); #Lymphocytes 3.9 thou/uL (1.20-3.40); #Monocytes 0.9 thou/uL (0.11-0.59); #Neutrophils 10.3 thou/uL (1.40-6.50); %Basophils 0.3 % (0.0-1.0); %Eosinophils 0.9 % (0.0-10.0); %Lymphocytes 25.7 % (21.0-51.0); %Neutrophils 67.2 % (42.0-75.0); Hemoglobin 13.5 g/dL (12.0-16.0); Mean Corpuscular HGB CONC 33.6 g/dL (32.0-36.0); Mean Corpuscular Hemoglobin 30.2 pg (27.0-31.0); Mean Corpuscular Volume 89.7 fL (78.0-98.0); Mean Platelet Volume 10.1 fL (7.4-10.4); Platelet Count 191 thou/uL (130-400); RBC Distribution Width 12.1 % (11.5-14.5); Red Blood Cell (RBC) Count 4.48 mill/uL (4.20-5.40); White Blood Cell (WBC) Count 15.4 thou/uL (4.8-10.8)
[2018-02-03] MEDS: Atorvastatin Calcium 40 MG TAB PO SCH (20:18)
[2018-02-03 23:57] LABS: #Basophils 0.1 thou/uL (0.0-0.2); #Eosinphils 0.3 thou/uL (0.0-0.7); #Lymphocytes 4.3 thou/uL (1.20-3.40); #Monocytes 0.7 thou/uL (0.11-0.59); #Neutrophils 7.7 thou/uL (1.40-6.50); %Basophils 0.7 % (0.0-1.0); %Eosinophils 2.4 % (0.0-10.0); %Lymphocytes 32.9 % (21.0-51.0); %Monocytes 5.3 % (0.0-10.0); %Neutrophils 58.7 % (42.0-75.0); Mean Corpuscular HGB CONC 33.7 g/dL (32.0-36.0); Mean Corpuscular Hemoglobin 30.3 pg (27.0-31.0); Mean Platelet Volume 10.1 fL (7.4-10.4); Platelet Count 160 thou/uL (130-400); RBC Distribution Width 12.2 % (11.5-14.5); Red Blood Cell (RBC) Count 4.28 mill/uL (4.20-5.40); White Blood Cell (WBC) Count 13.1 thou/uL (4.8-10.8)
[2018-02-04] MEDS: Acetaminophen 325 MG TAB PO PRN (05:27)
[2018-02-04] MEDS: Nitroglycerin 2% Ointment 1 INCH/1 GM Packet TOP SCH (05:28)
[2018-02-04] MEDS: glipiZIDE 5 MG TAB PO SCH ×2 (08:54→17:27)
[2018-02-04] MEDS: TICAGRELOR 90 MG TABLET PO SCH ×2 (08:55→20:17)
[2018-02-04] MEDS: Cefuroxime Axetil 250 MG TAB PO SCH ×2 (08:55→20:17)
[2018-02-04] MEDS: HumaLOG 300 UNITS/3 ML VIAL SC PRN (08:59)
[2018-02-04] MEDS: Ondansetron PF 4 MG/2 ML Vial IVP PRN (10:21)
--- NOTE | 2018-02-04 11:18 | PDOC.PN ---
- Subjective Encounter Start Date: 02/04/18 Encounter Start Time: 10:00 Subjective: no chest pain or palp or sob -: is amb in hallway - Objective MAR Reviewed: Yes Vital Signs & Weight: Vital Signs (12 hours) Temp Pulse Resp BP Pulse Ox 02/04/18 08:48 98.1 F 78 16 100/55 L 95 02/04/18 04:00 98.6 F 88 18 113/66 95 02/04/18 00:00 98.1 F 95 18 105/62 92 L Weight Weight 173 lb 15.115 oz Most Recent Monitor Data Heart Rate from ECG 103 NIBP 128/84 NIBP BP-Mean 98 Respiration from ECG 26 SpO2 94 I&O: 02/03/18 02/04/18 02/05/18 06:59 06:59 06:59 Intake Total 758 3212 Output Total 1950 1600 Balance -1192 1612 Result Diagrams: 02/03/18 23:50 02/03/18 03:37 Additional Labs: Accuchecks 02/04/18 02/03/18 02/03/18 05:20 20:55 16:27 POC Glucose 207 H 184 H 151 H 02/03/18 10:56 POC Glucose 210 H Phys Exam - Physical Examination HEENT: PERRLA, moist MMs Neck: no JVD, supple Respiratory: no wheezing, no rales rhonchi+ Cardiovascular: RRR, no significant murmur Gastrointestinal: soft, non-tender, positive bowel sounds Musculoskeletal: no edema, pulses present Neurological: non-focal, moves all 4 limbs Psychiatric: normal affect, A&O x 3 Dx/Plan (1) STEMI (ST elevation myocardial infarction) Status: Acute Qualifiers: Involved coronary artery: LAD coronary artery Qualified Code(s): I21.02 - ST elevation (STEMI) myocardial infarction involving left anterior descending coronary artery Comment: s/p stent (2) Dyslipidemia Code(s): E78.5 - HYPERLIPIDEMIA, UNSPECIFIED Status: Chronic (3) COPD (chronic obstructive pulmonary disease) Status: Chronic Qualifiers: COPD type: chronic bronchitis Chronic bronchitis type: unspecified Qualified Code(s): J42 - Unspecified chronic bronchitis (4) Tobacco abuse Code(s): Z72.0 - TOBACCO USE Status: Chronic (5) Hypertension Code(s): I10 - ESSENTIAL (PRIMARY) HYPERTENSION Status: Chronic Qualifiers: Hypertension type: essential hypertension Qualified Code(s): I10 - Essential (primary) hypertension (6) Pneumonia, community acquired Code(s): J18.9 - PNEUMONIA, UNSPECIFIED ORGANISM Status: Acute (7) DM type 2 (diabetes mellitus, type 2) Status: Acute Qualifiers: Diabetes mellitus detention insulin use: without watermelon inspector use Diabetes mellitus complication status: with unspecified complications Qualified Code(s) : E11.8 - Type 2 diabetes mellitus with unspecified complications Comment: new onset - Plan is on glipizide, may start metformin in am -: slightly hypotensive, will decrease lisinopril to 5mg bid -: dc nitropaste, continue coreg at current dose -: dc plan per advice -: is on ceftin, nebs, and iv fluids * . Review of Systems - Medications/Allergies Allergies/Adverse Reactions: Allergies Allergy/AdvReac Type Severity Reaction Status Date / Time latex Allergy Verified 04/11/16 13:26 morphine AdvReac Mild Verified 02/03/18 17:57 Medications: Current Medications Acetaminophen (Tylenol) 650 mg PO Q4H PRN PRN Reason: Headache/Fever or Pain Last Admin: 02/04/18 05:27 Dose: 650 mg Alprazolam (Xanax) 0.25 mg PO BID PRN PRN Reason: Anxiety Aspirin (Aspirin Chewable) 81 mg PO DAILY [facility] Last Admin: 02/04/18 08:55 Dose: 81 mg Atorvastatin Calcium (Lipitor) 40 mg PO HS [facility] Last Admin: 02/03/18 20:18 Dose: 40 mg Carvedilol (Coreg) 6.25 mg PO BID [facility] Last Admin: 02/03/18 20:19 Dose: 6.25 mg Cefuroxime Axetil (Ceftin) 250 mg PO Q12HR [facility] Stop: 02/08/18 09:01 Last Admin: 02/04/18 08:55 Dose: 250 mg Clonidine (Catapres) 0.1 mg PO Q2H PRN PRN Reason: SBP GREATER THAN 160 Dextrose/Water (Dextrose 50%) 25 gm IVP PRN PRN PRN Reason: HYPOGLYCEMIA PROTOCOL Glipizide (Glucotrol) 5 mg PO BID-[facility] Last Admin: 02/04/18 08:54 Dose: 5 mg Glucagon (Glucagon) 1 mg IM PRN PRN PRN Reason: HYPOGLYCEMIA PROTOCOL Dextrose/Water (D5w) 1,000 mls @ 0 mls/hr IV INF PRN PRN Reason: HYPOGLYCEMIA PROTOCOL Sodium Chloride (Normal Saline 0.9%) 1,000 mls @ 85 mls/hr IV .[id number] [facility] Last Admin: 02/03/18 23:28 Dose: 1,000 mls Insulin Human Lispro (Humalog) 0 units SC .MODERATE SLIDING SC PRN; Protocol PRN Reason: MODERATE SLIDING SCALE Last Admin: 02/04/18 08:59 Dose: 4 unit Lisinopril (Zestril) 10 mg PO BID [facility] Last Admin: 02/03/18 20:19 Dose: 10 mg Morphine Sulfate (Morphine) 4 mg SLOW IVP Q4H PRN PRN Reason: Chest Pain (7-10) Morphine Sulfate (Morphine) 2 mg SLOW IVP Q4H PRN PRN Reason: CHEST PAIN (4-6) Nitroglycerin (Nitrostat) 0.4 mg SL Q5MIN PRN PRN Reason: Chest Pain Last Admin: 02/03/18 09:33 Dose: 0.4 mg Nitroglycerin (Nitro-Bid 2% Ointment) 0.5 inch TOP Q6HR [facility] Last Admin: 02/04/18 05:28 Dose: 0.5 inch Ondansetron HCl (Zofran) 4 mg IVP Q6H PRN PRN Reason: Nausea/Vomiting Last Admin: 02/04/18 10:21 Dose: 4 mg Sodium Chloride (Flush - Normal Saline) 10 ml IVF PRN PRN PRN Reason: Saline Flush Last Admin: 02/03/18 09:31 Dose: 10 ml Sodium Chloride (Flush - Normal Saline) 10 ml IVF Q12HR [facility] Last Admin: 02/04/18 08:55 Dose: 10 ml Ticagrelor (Brilinta) 90 mg PO BID [facility] Last Admin: 02/04/18 08:55 Dose: 90 mg Zolpidem Tartrate (Ambien) 5 mg PO HSPRN PRN PRN Reason: Insomnia
[2018-02-04] MEDS: Lisinopril 10 MG TAB PO SCH (11:54)
--- NOTE | 2018-02-04 12:49 | PRG ---
DATE OF SERVICE: 02/04/2018 SUBJECTIVE: A 52-year-old female who says she is doing well, no further chest pain or shortness of b reath. OBJECTIVE: VITALS: Sats are 98% on room air. Respirations 16, temperature 98, blood pressure 100/55. CHEST: Decreased breath sounds, no wheezing. CARDIAC: Normal S1, S2, without mass. IMPRESSION: Status post cardiac catheterization, coronary artery disease with acute myocardial infar ction, tobacco abuse, chronic obstructive pulmonary disease. PLAN: Empiric antibiotics. DISPOSITION: As per Cardiology.
[2018-02-04] MEDS: Carvedilol 6.25 MG TAB PO SCH ×2 (13:37→20:18)
[2018-02-04] MEDS: Sodium Chloride 0.9% 1,000 ML IV SCH ×2 (17:27→23:53)
[2018-02-04] MEDS: Lisinopril 5 MG TAB PO SCH (20:18)
[2018-02-04] MEDS: Atorvastatin Calcium 40 MG TAB PO SCH (20:18)
[2018-02-05] MEDS ORDERED: Senokot 8.6 MG TAB PO PRN (00:05)
[2018-02-05 05:47] LABS: #Basophils 0.1 thou/uL (0.0-0.2); #Eosinphils 0.2 thou/uL (0.0-0.7); #Lymphocytes 3.1 thou/uL (1.20-3.40); #Monocytes 0.6 thou/uL (0.11-0.59); #Neutrophils 5.3 thou/uL (1.40-6.50); %Basophils 0.7 % (0.0-1.0); %Eosinophils 2.3 % (0.0-10.0); %Neutrophils 57.1 % (42.0-75.0); Hemoglobin 11.9 g/dL (12.0-16.0); Mean Corpuscular HGB CONC 32.9 g/dL (32.0-36.0); Mean Corpuscular Hemoglobin 30.1 pg (27.0-31.0); Mean Corpuscular Volume 91.3 fL (78.0-98.0); Mean Platelet Volume 10.3 fL (7.4-10.4); Platelet Count 131 thou/uL (130-400); RBC Distribution Width 12.1 % (11.5-14.5); Red Blood Cell (RBC) Count 3.96 mill/uL (4.20-5.40); White Blood Cell (WBC) Count 9.2 thou/uL (4.8-10.8)
[2018-02-05 05:52] LABS: Anion Gap 10 mmol/L (10-20); BUN (Urea Nitrogen) 8 mg/dL (9.8-20.1); Calc. Creatinine Clearance 127 mL/min (70-130); Calcium 8.6 mg/dL (7.8-10.44); Carbon Dioxide 23 mmol/L (22-29); Chloride 109 mmol/L (98-107); Estimated GFR-MDRD Greater than 90; Glucose 140 mg/dL (70-105); Potassium 3.2 mmol/L (3.5-5.1); Sodium 139 mmol/L (136-145)
--- NOTE | 2018-02-05 09:06 | PRG ---
DATE OF SERVICE: 02/05/2018 This morning she is awake, alert, responsive, less short of breath. Sputum is clear. PHYSICAL EXAMINATION: VITAL SIGNS: Sats are 96 on room air, temperature is 98, pulse 78, respiration 15, blood pressure is 108/61. CHEST: Chest reveals decreased breath sounds, no wheezing. CARDIAC: Normal S1, S2. ABDOMEN: Soft, no masses. LABORATORY DATA: White count 9000. Electrolytes are normal. IMPRESSION: 1. Coronary artery disease. 2. Bibasilar infiltrates. 3. Atelectasis. 4. Tobacco abuse. 5. Chronic obstructive pulmonary disease. PLAN: Continue p.o. antibiotics. Disposition as per Cardiology.
[2018-02-05] MEDS: Carvedilol 6.25 MG TAB PO SCH (09:11)
[2018-02-05] MEDS: Lisinopril 5 MG TAB PO SCH (09:11)
[2018-02-05] MEDS: Cefuroxime Axetil 250 MG TAB PO SCH (09:11)
[2018-02-05] MEDS: glipiZIDE 5 MG TAB PO SCH (09:12)
[2018-02-05] MEDS: TICAGRELOR 90 MG TABLET PO SCH (09:12)
[2018-02-05] MEDS: Sodium Chloride 0.9% 1,000 ML IV SCH (09:19)
[2018-02-05] MEDS: HumaLOG 300 UNITS/3 ML VIAL SC PRN (11:37)
--- NOTE | 2018-02-05 11:41 | PDOC.CTH ---
Cardiology Progress Note - Subjective The pt seen and examined. No overnight events. No cardiac complaints. - Objective Vital Signs Temp Pulse Pulse Pulse Resp BP BP 02/05/18 09:11 70 100/55 L 02/05/18 09:07 74 72 137/79 02/05/18 08:00 99 F 70 18 02/05/18 04:15 02/05/18 03:57 98.4 F 81 15 BP BP Pulse Ox Pulse Ox Pulse Ox 02/05/18 09:11 02/05/18 09:07 120/67 99 95 02/05/18 08:00 120/67 95 02/05/18 04:15 96 02/05/18 03:57 108/61 96 Weight 194 lb 9 oz 02/04/18 02/05/18 02/06/18 06:59 06:59 06:59 Intake Total 3212 3075 Output Total 1600 Balance 1612 3075 - Labs Result Diagrams: 02/05/18 05:07 02/05/18 05:07 Troponin/CKMB CK-MB (CK-2) 1.5 ng/mL (0-6.6) 02/02/18 21:07 Troponin I 109.958 ng/mL (< 0.028) H* 02/03/18 11:29 - Assessment/Plan 1. STEMI and S/p PTCA and CB stent to LAD, 40-0% in porx-mid RCA - stable with ASA 81mg qd, Brilinta BID, Coreg 6.25mg BID, Lisinopril 5mg BID, and Lipitor 40mg qd. 2. HTN - stable 3. Dyslipidemia - on Satin 4. DM type 2 - managed by PCP 5. COPD - stable with RA 6. Tobacco abuse - Smoking cessation education given 7. PNA - managed by conveyor belt repairer MAR reviewed * From Cardiac standpoint, the pt is stable to d/c home. F/u within 10 days.
[2018-02-05 11:45] VITALS: BP 116/71; TEMP 98.2
--- NOTE | 2018-02-05 12:15 | PDOC.PN ---
- Subjective Encounter Start Date: 02/05/18 Encounter Start Time: 09:15 Subjective: is amb in hallway, no chest pain or sob - Objective MAR Reviewed: Yes Vital Signs & Weight: Vital Signs (12 hours) Temp Pulse Pulse Pulse Resp BP BP 02/05/18 11:41 98.2 F 74 18 02/05/18 09:11 70 100/55 L 02/05/18 09:07 74 72 137/79 02/05/18 08:00 99 F 70 18 02/05/18 04:15 02/05/18 03:57 98.4 F 81 15 BP BP Pulse Ox Pulse Ox Pulse Ox 02/05/18 11:41 116/71 94 L 02/05/18 09:11 02/05/18 09:07 120/67 99 95 02/05/18 08:00 120/67 95 02/05/18 04:15 96 02/05/18 03:57 108/61 96 Weight Weight 194 lb 9 oz Most Recent Monitor Data Heart Rate from ECG 103 NIBP 128/84 NIBP BP-Mean 98 Respiration from ECG 26 SpO2 94 I&O: 02/04/18 02/05/18 02/06/18 06:59 06:59 06:59 Intake Total 3212 3075 Output Total 1600 Balance 1612 3075 Result Diagrams: 02/05/18 05:07 02/05/18 05:07 Additional Labs: Accuchecks 02/05/18 02/05/18 02/04/18 10:47 06:11 20:44 POC Glucose 222 H 151 H 138 H 02/04/18 16:45 POC Glucose 120 H Phys Exam - Physical Examination HEENT: PERRLA, moist MMs Neck: no JVD, supple Respiratory: no wheezing, no rales Cardiovascular: RRR, no significant murmur Gastrointestinal: soft, non-tender, positive bowel sounds Musculoskeletal: no edema, pulses present Neurological: non-focal, moves all 4 limbs Psychiatric: normal affect, A&O x 3 Dx/Plan (1) STEMI (ST elevation myocardial infarction) Status: Acute Qualifiers: Involved coronary artery: LAD coronary artery Qualified Code(s): I21.02 - ST elevation (STEMI) myocardial infarction involving left anterior descending coronary artery Comment: s/p stent (2) Dyslipidemia Code(s): E78.5 - HYPERLIPIDEMIA, UNSPECIFIED Status: Chronic (3) COPD (chronic obstructive pulmonary disease) Status: Chronic Qualifiers: COPD type: chronic bronchitis Chronic bronchitis type: unspecified Qualified Code(s): J42 - Unspecified chronic bronchitis (4) Tobacco abuse Code(s): Z72.0 - TOBACCO USE Status: Chronic (5) Hypertension Code(s): I10 - ESSENTIAL (PRIMARY) HYPERTENSION Status: Chronic Qualifiers: Hypertension type: essential hypertension Qualified Code(s): I10 - Essential (primary) hypertension (6) Pneumonia, community acquired Code(s): J18.9 - PNEUMONIA, UNSPECIFIED ORGANISM Status: Acute (7) DM type 2 (diabetes mellitus, type 2) Status: Acute Qualifiers: Diabetes mellitus residential insulin use: without rodent exterminator use Diabetes mellitus complication status: with unspecified complications Qualified Code(s) : E11.8 - Type 2 diabetes mellitus with unspecified complications Comment: new onset - Plan hemostable -: d/w , dc pt home -: to check fingerstick, BP and pulse bid x 10 days and record to f/u with PCP * .
--- NOTE | 2018-02-06 00:06 | DIS ---
DATE OF ADMISSION: 02/02/2018 DATE OF DISCHARGE: 02/05/2018 DISCHARGE DISPOSITION: To home. PRIMARY DISCHARGE DIAGNOSES: ST elevation myocardial infarction, anterior wall, status post stenting done to LAD; new-onset diabetes mellitus, type 2; pneumonia. SECONDARY DISCHARGE DIAGNOSES: Dyslipidemia, chronic obstructive pulmonary disease, tobacco abuse, h ypertension. PROCEDURES DONE DURING HOSPITALIZATION: The patient had coronary angiogram done on the day of admiss [facility] for STEMI alert and was found to have had 100% LAD lesion. She had PTCA with stent done for the same. Patient was also found to have had serial lesions in the proximal and mid RCA 40% to 50% for m edical management. Echo with 2D Doppler done showed EF of 45%-50%, apex was akinetic. There was jennifer stolic dysfunction. White count of 21, discharge number of 9, H&H 11 and 36, platelet count 131. Di scharge BUN and creatinine is 8 and 0.6, troponin I peaking up to 139. CK-MB 1.5. DISCHARGE MEDICATIONS: Aspirin 81 mg p.o. daily, Brilinta 90 mg p.o. twice daily, metformin 500 mg p .o. twice daily, glipizide 5 mg daily, lisinopril 5 mg twice daily, Coreg 6.25 mg twice daily, Lipito r 40 mg p.o. at bedtime, Ceftin 250 mg p.o. twice daily for a total of 5 days. ALLERGIES: LATEX and questionable MORPHINE. DISCHARGE PLAN: Patient to follow up with Dr. Son as advised and primary care physician in 1 week. BRIEF COURSE DURING HOSPITALIZATION: Patient initially got admitted on the after STEMI activati on for anterior wall [place]. She was taken to cardiac catheterization by Dr. Son. Patient was found to have had 100% LAD occlusion and had stent placed. Patient also had new diagnosis of diabetes mellit us type 2 and hypertension. Her white count was 21 and initial x-ray was suspicious for possible pne umonia. Patient was on IV antibiotics and has been switched over to Ceftin. She has responded well to above measures. Prior to discharge, she is ambulating and eating well. Patient needs to check he r fingerstick glucose twice daily. Blood pressure and pulse twice daily and record for a period of 1 0 days to follow up with her primary care physician for changes in the medication. She was counseled with regards to dietary compliance and medication compliance. Patient has a followup appointment an d needs to keep of those. Patient was seen and examined on the day of discharge.
--- NOTE | 2018-02-07 08:15 | EKG ---
Test Reason : STAT Blood Pressure : / mmHG Vent. Rate : 103 BPM Atrial Rate : 103 BPM P-R Int : 162 ms QRS Dur : 082 ms QT Int : 346 ms P-R-T Axes : 074 044 049 degrees QTc Int : 453 ms Sinus tachycardia Anteroseptal infarct , age undetermined Abnormal ECG When compared with ECG of 27-JAN-2018 20:32, (Unconfirmed) Anteroseptal infarct is now Present ST elevation now present in Anterior leads T wave inversion now evident in Anterior leads Confirmed by DR. Ulises OCASIO ([id number]) on 02/07/2018 8:15:28 AM Referred By: Confirmed By:DR. Ulises OCASIO
== END 2018-02-05 15:00 | disposition home or self-care (01) | DRG 246 ==
LOC: ERS 21:04 → 2NO 21:43 → CCL 21:52 → CCU 22:31 → 2NO 02-03 16:50
PROVIDERS: ADMIT Internal Medicine Cardiovascular Disease; ATTEND Internal Medicine Cardiovascular Disease
PROC: 027034Z Dilation of Coronary Artery, One Artery with Drug-eluting Intraluminal Device, Percutaneous Approach (ICD-10-PCS; principal; 2018-02-02)
PROC: 02C03ZZ Extirpation of Matter from Coronary Artery, One Artery, Percutaneous Approach (ICD-10-PCS; 2018-02-02)
PROC: 4A023N7 Measurement of Cardiac Sampling and Pressure, Left Heart, Percutaneous Approach (ICD-10-PCS; 2018-02-02)
PROC: B2111ZZ Fluoroscopy of Multiple Coronary Arteries using Low Osmolar Contrast (ICD-10-PCS; 2018-02-02)
PROC: B2151ZZ Fluoroscopy of Left Heart using Low Osmolar Contrast (ICD-10-PCS; 2018-02-02)
DX: I21.09 ST elevation (STEMI) myocardial infarction involving other coronary artery of anterior wall (principal); J18.9 Pneumonia, unspecified organism; J44.0 Chronic obstructive pulmonary disease with (acute) lower respiratory infection; E11.9 Type 2 diabetes mellitus without complications; E78.5 Hyperlipidemia, unspecified; I10 Essential (primary) hypertension; I25.10 Atherosclerotic heart disease of native coronary artery without angina pectoris; F17.210 Nicotine dependence, cigarettes, uncomplicated; E66.9 Obesity, unspecified; Z68.32 Body mass index [BMI] 32.0-32.9, adult; Z88.5 Allergy status to narcotic agent; Z91.040 Latex allergy status; Z79.84 Long term (current) use of oral hypoglycemic drugs; Z79.899 Other long term (current) drug therapy; Z96.651 Presence of right artificial knee joint
CPT/HCPCS: 36415; 36416; 71045; 80048; 80053; 82553; 84484; 85025; 85347; 85610; 85730; 93005; 93010; 93306; 93798; C1725; C1769; C1874; C1887; J0360; J1644; J2001; J2270; J2405; J3246

== ENCOUNTER 2018-03-28 14:23 | Observation (INO) | payer BC ==
[~2018-03-28 14:23] MED LIST: Iopamidol 370 76% 100 ML VIAL ONE
[2018-03-28 15:06] LABS: #Basophils 0.1 thou/uL (0.0-0.2); #Eosinphils 0.3 thou/uL (0.0-0.7); #Lymphocytes 3.1 thou/uL (1.20-3.40); #Monocytes 0.6 thou/uL (0.11-0.59); #Neutrophils 5.1 thou/uL (1.40-6.50); %Basophils 1.1 % (0.0-1.0); %Eosinophils 2.7 % (0.0-10.0); %Lymphocytes 34.2 % (21.0-51.0); %Monocytes 6.9 % (0.0-10.0); %Neutrophils 55.1 % (42.0-75.0); Hemoglobin 13.7 g/dL (12.0-16.0); Mean Corpuscular HGB CONC 34.4 g/dL (32.0-36.0); Mean Corpuscular Hemoglobin 30.2 pg (27.0-31.0); Mean Platelet Volume 9.2 fL (7.4-10.4); Platelet Count 207 thou/uL (130-400); Red Blood Cell (RBC) Count 4.54 mill/uL (4.20-5.40); White Blood Cell (WBC) Count 9.2 thou/uL (4.8-10.8)
[2018-03-28 15:26] LABS: ALT (SGPT) 16 U/L (8-55); AST (SGOT) 13 U/L (5-34); Albumin 4.3 g/dL (3.5-5.0); Alkaline Phosphatase 97 U/L (40-150); Anion Gap 16 mmol/L (10-20); BUN (Urea Nitrogen) 14 mg/dL (9.8-20.1); Bilirubin, Total 0.5 mg/dL (0.2-1.2); CK (CPK) 64 U/L (29-168); Calc. Creatinine Clearance 0 mL/min (70-130); Calcium 9.3 mg/dL (7.8-10.44); Carbon Dioxide 19 mmol/L (22-29); Chloride 106 mmol/L (98-107); Estimated GFR-MDRD 66; Globulin 2.8 g/dL (2.4-3.5); Glucose 91 mg/dL (70-105); Lipase 84 U/L (8-78); Potassium 4.4 mmol/L (3.5-5.1); Protein, Total 7.1 g/dL (6.0-8.3); Sodium 137 mmol/L (136-145)
[2018-03-28] MEDS ORDERED: Nitroglycerin 2% Ointment 1 INCH/1 GM Packet ONE (15:27)
--- NOTE | 2018-03-28 15:34 | RAD ---
SINGLE VIEW CHEST: HISTORY: Chest pain. COMPARISON: 02/02/2018 FINDINGS: Single view of the chest show normal sized cardiomediastinal silhouette. There is no evidence of cons olidation, mass, or pleural effusion. The bones are unremarkable. IMPRESSION: No evidence of acute cardiopulmonary disease. POS: [facility]
[2018-03-28] MEDS ORDERED: Ondansetron ODT 4 MG TAB SL PRN (17:00)
[2018-03-28] MEDS ORDERED: Ondansetron PF 4 MG/2 ML Vial IVP PRN (17:00)
--- NOTE | 2018-03-28 17:04 | CT ---
CTA OF THE CHEST WITH CONTRAST 03/28/18 COMPARISON: None. HISTORY: Chest pain since Monday that radiates to the back and neck. Chills and nausea. TECHNIQUE: Multiple contiguous axial images were obtained in a CTA of the chest with contrast per pulmonary embo lism protocol. 3D oblique MIP reformats and direct coronal reformats were performed. FINDINGS: The pulmonary arteries are well opacified without filling defects to suggest pulmonary emboli. The he art is normal in size without focal cardiac abnormality. No hilar or mediastinal lymphadenopathy are seen. No pneumothorax or pleural effusion are seen. No suspicious pulmonary nodules are seen. No focal infi ltrates are present. Mild degenerative changes are seen in the spine. The visualized subdiaphragmatic structures are unrem arkable. The chest wall soft tissues are unremarkable. IMPRESSION: No evidence of pulmonary thromboembolism. POS: [facility]
[2018-03-28 18:45] VITALS: BMI 32.8
[2018-03-28] MEDS ORDERED: Acetaminophen 325 MG TAB PO PRN (18:58)
[2018-03-28] MEDS ORDERED: HYDROcodone/Acetaminophen 5/325 mg Tablet PO PRN (18:58)
[2018-03-28] MEDS ORDERED: Dextrose 5% in Water 1,000 ML IV PRN (19:00)
[2018-03-28] MEDS ORDERED: Dextrose 50% Abboject 50 ML SYRINGE SLOW IVP PRN (19:00)
[2018-03-28] MEDS ORDERED: HumaLOG 300 UNITS/3 ML VIAL SC PRN (19:00)
[2018-03-28] MEDS: Lisinopril 5 MG TAB PO SCH (20:20)
[2018-03-28] MEDS: Atorvastatin Calcium 40 MG TAB PO SCH (20:21)
[2018-03-28] MEDS: Carvedilol 6.25 MG TAB PO SCH (20:21)
[2018-03-28] MEDS: TICAGRELOR 90 MG TABLET PO SCH (20:21)
[2018-03-28] MEDS: Famotidine 20 MG TAB PO SCH (20:21)
[2018-03-28] MEDS ORDERED: traMADol HCl 50 MG TAB PO PRN (20:58)
[2018-03-28] MEDS: Nitroglycerin 0.4 MG TAB (25 Tab Bottle) SL PRN (21:24)
--- NOTE | 2018-03-29 02:14 | HP ---
PRIMARY CARE PHYSICIAN: Cielo Linton PA-C CHIEF COMPLAINT: Chest pain. HISTORY OF PRESENT ILLNESS: Ms. Orozco is a very pleasant 52-year-old female, who reports to the ER today for constant chest pain since Monday. It radiates to her back and neck. Reports chills and nausea. The patient recently was admitted for a STEMI in January, had a cardiac cath which showed 100% blockage in her LAD and was stented. The patient reports that she had remained relatively pain free until Monday when the pain came back, reports that it is similar to feeling as she had in January, only just not as severe. Reports that her blood pressure has remained within normal limits. Reports the pain is sharp and tightness. Reports some associated shortness of breath. Reports that she did call Dr. Son' office today, who is a clerical support and reports that they told her to come to the emergency room. PAST MEDICAL HISTORY: Ovarian cysts, multiple; new diagnosis of diabetes and hypertension on last admission in January; STEMI on February 02 with a stent placement. PAST SURGICAL HISTORY: section x1, right knee replacement in January 2015, vocal cord polyp removal, hysterectomy, hernia repair, heart catheterization with cardiac stent placed in LAD in January 2018. PSYCHIATRIC HISTORY: None. SOCIAL HISTORY: The patient denies alcohol use; drug use; former smoker, has quit in the last year. FAMILY HISTORY: Reports father had a history of cardiac aneurysms x3. Mother, CABG x4, kidney cancer with lung metastasis. KNOWN ALLERGIES: Latex, morphine. HOME MEDICATIONS: 1. Aspirin 81 mg daily. 2. Brilinta 90 mg b.i.d. 3. Coreg 6.25 mg b.i.d. 4. Lisinopril 5 mg b.i.d. 5. Glipizide 5 mg daily. 6. Metformin 500 mg b.i.d. REVIEW OF SYSTEMS: CONSTITUTIONAL: The patient reports chills. Denies fever. EYES: Denies any eye pain or vision changes. ENT: Denies rhinorrhea or sore throat. Denies voice changes. CARDIOVASCULAR: Does report chest pain. Denies palpitations. RESPIRATORY: Denies cough. Reports some shortness of breath. GI: Denies abdominal pain, constipation. Does report some nausea. Denies vomiting. : Denies dysuria, increased frequency. MUSCULOSKELETAL: Reports some back pain. Denies falls or injury. Reports chest pain that radiates to her neck. SKIN: Denies any skin changes. Denies rash. NEUROLOGIC: Does report headache. Denies any mental status changes. Denies sensory changes. PHYSICAL EXAMINATION: VITAL SIGNS: Blood pressure 108/57, pulse is 75, respirations 17, temperature is 98.4, pulse ox is 97% on room air. CONSTITUTIONAL: The patient appears non-toxic. The patient appears in mild pain, distress. The patient is alert and oriented to person, place, and time. HEENT: Head is atraumatic and normocephalic. Eyes, eyelids are normal to inspection. Pupils are equally round and reactive to light. Extraocular muscles are intact. ENT, mouth exam is normal. Mucous membranes are moist. NECK: Trachea is midline. No tenderness. RESPIRATORY: Chest, breath sounds are clear. No findings of respiratory distress. CARDIOVASCULAR: Regular rate and rhythm. Heart sounds, systolic murmur present, grade 2/6. ABDOMEN: Female. Nontender. Bowel sounds are normal. No distention. BACK: Normal inspection. Normal range of motion. No tenderness. EXTREMITIES: Upper extremity findings, normal inspection. Normal range of motion. Motor strength is normal. Sensation is intact. Radial pulses are normal. Lower extremities, normal range of motion. Motor strength is normal. Pedal pulses normal. No edema is noted. NEUROLOGIC: The patient is alert and oriented to person, place, and time. Speech is normal. Gait is normal. Cranial nerves 2 through 12 are intact. No focal motor or sensory deficits. SKIN: Warm, dry, normal in color. No rash. DIAGNOSTIC DATA: EKG in the emergency room shows normal sinus rhythm, beats 77 per minute, no ectopics. There is Q-wave in lead III, V1, V2, V3. Conduction is normal. ST segments are normal. T waves are normal. A CT chest shows chronic changes, nothing acute. LABORATORY DATA: White blood cell count is 9.2, hemoglobin 13.7, hematocrit 39.9, and platelet count is 207. D-dimer was 0.59. Chemistry; sodium 137, potassium 4.4, chloride 106, gap is 16, BUN 14, creatinine is 0.89, estimated GFR is 66, glucose is 91, and calcium 9.3. Liver enzymes are unremarkable. First two troponins are undetectable. Lipase is 84. ASSESSMENT AND PLAN: 1. Chest pain. The patient had an echocardiogram, cardiac cath in January. We will consult Dr. Son and ask for her input. 2. Diabetes. We will continue home medication. We will add sliding scale as needed. May hold her glipizide, as she reports that her blood sugar is dipping into the 50s in the morning and she generally feels bad, but not happens. 3. Hypertension. We will continue home medication, we will trend vital signs. 4. Hospital course will depend on clinical findings. Job ID: [id number]
[2018-03-29] MEDS: Nitroglycerin 0.4 MG TAB (25 Tab Bottle) SL PRN (02:56)
[2018-03-29 05:41] LABS: #Basophils 0.1 thou/uL (0.0-0.2); #Eosinphils 0.3 thou/uL (0.0-0.7); #Lymphocytes 3.5 thou/uL (1.20-3.40); #Monocytes 0.4 thou/uL (0.11-0.59); #Neutrophils 4.2 thou/uL (1.40-6.50); %Basophils 1.7 % (0.0-1.0); %Eosinophils 3.1 % (0.0-10.0); %Monocytes 5.1 % (0.0-10.0); %Neutrophils 49.1 % (42.0-75.0); Hemoglobin 11.8 g/dL (12.0-16.0); Mean Corpuscular HGB CONC 32.7 g/dL (32.0-36.0); Mean Corpuscular Hemoglobin 28.9 pg (27.0-31.0); Mean Corpuscular Volume 88.3 fL (78.0-98.0); Mean Platelet Volume 9.1 fL (7.4-10.4); Platelet Count 166 thou/uL (130-400); Red Blood Cell (RBC) Count 4.09 mill/uL (4.20-5.40); White Blood Cell (WBC) Count 8.5 thou/uL (4.8-10.8)
[2018-03-29 06:29] LABS: ALT (SGPT) 13 U/L (8-55); AST (SGOT) 10 U/L (5-34); Albumin 3.6 g/dL (3.5-5.0); Alkaline Phosphatase 80 U/L (40-150); Anion Gap 11 mmol/L (10-20); BUN (Urea Nitrogen) 15 mg/dL (9.8-20.1); Bilirubin, Total 0.6 mg/dL (0.2-1.2); Calc. Creatinine Clearance 123 mL/min (70-130); Calcium 8.6 mg/dL (7.8-10.44); Carbon Dioxide 22 mmol/L (22-29); Chloride 108 mmol/L (98-107); Estimated GFR-MDRD 82; Globulin 2.6 g/dL (2.4-3.5); Glucose 97 mg/dL (70-105); Potassium 4.1 mmol/L (3.5-5.1); Protein, Total 6.2 g/dL (6.0-8.3); Sodium 137 mmol/L (136-145)
[2018-03-29] MEDS: metFORMIN 500 MG TAB PO SCH ×2 (08:16→18:14)
[2018-03-29] MEDS: Lisinopril 5 MG TAB PO SCH ×2 (09:00→20:21)
[2018-03-29] MEDS ORDERED: Enoxaparin Sodium 40 MG/0.4 ML SYRINGE SC SCH (09:00)
[2018-03-29] MEDS: Famotidine 20 MG TAB PO SCH ×2 (09:01→20:21)
[2018-03-29] MEDS: Carvedilol 6.25 MG TAB PO SCH ×2 (09:01→20:21)
[2018-03-29] MEDS: TICAGRELOR 90 MG TABLET PO SCH ×2 (09:01→20:21)
[2018-03-29] MEDS ORDERED: Communication Order-Pharmacy FS SCH (09:30)
--- NOTE | 2018-03-29 10:18 | PDOC.PN ---
- Subjective Encounter Start Date: 03/29/18 Encounter Start Time: 10:15 Patient lying in bed, no events over night. She reports chest pain that is 6/ 10. She denies shortness of breath, but she is concerned for the chest pain being similar to before when she had her IL. She had noticed new suprapubic pain and reports some cloudy urine. Cardiology Dr Son planning heart cath today - Objective Resuscitation Status - Order Detail: 03/28/18 18:58 Resuscitation Status Routine Co-Sign Provider: Resuscitation Status: FULL: Full Resuscitation Discussed with: patient Additional comments: John is surrogate decision maker MAR Reviewed: Yes Vital Signs & Weight: Vital Signs (12 hours) Temp Pulse Resp BP Pulse Ox 03/29/18 07:45 98.1 F 63 15 123/61 96 03/29/18 04:06 97.8 F 64 18 108/58 L 95 03/28/18 23:46 98.7 F 61 16 109/61 97 Weight Weight 197 lb 4.8 oz I&O: 03/28/18 03/29/18 03/30/18 06:59 06:59 06:59 Intake Total 360 Balance 360 Result Diagrams: 03/29/18 05:19 03/29/18 05:19 Additional Labs: Accuchecks 03/28/18 18:41 POC Glucose 94 Radiology Reviewed by me: Yes EKG Reviewed by me: Yes Phys Exam - Physical Examination Constitutional: NAD HEENT: PERRLA, moist MMs, oral pharynx no lesions Neck: no nodes, no JVD, supple Respiratory: no wheezing, no rales, no rhonchi, clear to auscultation bilateral Cardiovascular: RRR, no rub 2/6 systolic murmur noted Gastrointestinal: soft, no distention, positive bowel sounds Suprapubic tenderness noted Musculoskeletal: no edema, pulses present Neurological: non-focal, normal sensation, moves all 4 limbs Lymphatic: no nodes Psychiatric: normal affect, A&O x 3 Skin: no rash, normal turgor, cap refill <2 seconds Dx/Plan (1) Chest pain Code(s): R07.9 - CHEST PAIN, UNSPECIFIED Status: Acute (2) CAD (coronary artery disease) Code(s): I25.10 - ATHSCL HEART DISEASE OF [place] CORONARY ARTERY W/O ANG PCTRS Status: Acute (3) Diabetes mellitus type 2 in obese Code(s): E11.69 - TYPE 2 DIABETES MELLITUS WITH OTHER SPECIFIED COMPLICATION; E66.9 - OBESITY, UNSPECIFIED Status: Acute (4) Dyslipidemia Code(s): E78.5 - HYPERLIPIDEMIA, UNSPECIFIED Status: Chronic (5) Hypertension Code(s): I10 - ESSENTIAL (PRIMARY) HYPERTENSION Status: Chronic Qualifiers: Hypertension type: essential hypertension Qualified Code(s): I10 - Essential (primary) hypertension - Plan cont current plan of care * Cardiology planning heart cath today, await results and further recommendations * Continue home medications * Monitor vitals and labs closely * With new suprapubic tenderness with check UA to rule out UTI
[2018-03-29 11:13] LABS: Bilirubin Negative (Negative); Blood, Urine Negative (Negative); Clarity CLEAR (Clear); Glucose, Urine (Dipstick) Negative (Negative); Leukocyte Negative (Negative); Nitrite Negative (Negative); Protein, Urine (Dipstick) Negative (Neg-Trace); Specific Gravity, Urine 1.009 (1.002-1.036); Urobilinogen 0.2 mg/dL (0.2-1.0)
[2018-03-29 11:19] LABS: Bacteria/HPF None Seen HPF (None Seen); Hyaline Casts/LPF 0-3 HYALINE CAST LPF (0-3 Hyaline); RBC/HPF None Seen HPF (0-3); Squamous Epithelial 0-3 HPF (0-3); WBC/HPF None Seen HPF (0-3)
[2018-03-29] MEDS ORDERED: Heparin 10,000 UNITS/1 ML VIAL ONE (14:18)
[2018-03-29] MEDS ORDERED: Nitroglycerin 100MG/250ML BOT 250 ML ONE (14:18)
[2018-03-29] MEDS ORDERED: Verapamil 5 MG/2 ML VIAL ONE (14:18)
[2018-03-29] MEDS ORDERED: Iopamidol 370 76% 100 ML VIAL ONE (15:39)
[2018-03-29] MEDS ORDERED: traMADol HCl 50 MG TAB PO PRN (16:11)
[2018-03-29] MEDS ORDERED: Acetaminophen/Codeine 30-300mg Tablet PO PRN ×2 (16:11)
[2018-03-29] MEDS ORDERED: Nitroglycerin 0.4 MG TAB (25 Tab Bottle) SL PRN (16:11)
[2018-03-29] MEDS ORDERED: Sodium Chloride 0.9% 200 ML IV PRN (16:11)
[2018-03-29 19:43] VITALS: TEMP 98.9
[2018-03-29] MEDS: Atorvastatin Calcium 40 MG TAB PO SCH (20:21)
[2018-03-29 21:28] VITALS: BP 106/58
--- NOTE | 2018-03-30 04:21 | CON ---
DATE OF CONSULTATION: TYPE OF CONSULTATION: Cardiology. PRIMARY CARE PROVIDER: VALE Madera PRIMARY ALGEBRA TUTOR: Dr. Clarisa Son. REFERRING PROVIDER: Ms. Jackie Alvarez. REASON FOR CARDIOLOGY CONSULT: Chest pain and history of stent placement. HISTORY OF PRESENT ILLNESS: Ms. Orozco is a 52-year-old female with a significant history of coronary artery disease and stent placement to the LAD in January 2018 with 40% to 50% stenosis in the proximal and mid right coronary arteries, hypertension, hyperlipidemia, diabetes type 2, and chronic obstructive pulmonary disease. She presents to the emergency department due to sharp dull pain across the chest, which radiated to her right neck and tingling to the bilateral fingers, which is very similar to the symptom when she had a cardiac catheterization in January 2018, she had those symptoms since last Monday. Nothing improved the heart symptom at this moment. She has not taken any nitroglycerin. Even this morning, during the initial Cardiology assessment, the patient continued having the above symptom. The EKG is within normal range or has not changed. The patient's cardiac enzyme within normal range. The patient states that the patient's blood sugar has been stable. The patient denied any dizziness, lightheadedness, shortness of breath, or any other complaints, however, she also had nausea and vomiting last week, since then she had no nausea or vomiting. The patient's last echocardiogram was done in January 2018 with an EF of 40% to 50% grade 1 diastolic dysfunction and a mild mitral valve regurgitation and a mild tricuspid regurgitation. The patient underwent cardiac catheterization and stent placement in February 03, 2018. Cardiac stent placement to the LAD and 40% to 50% stenosis to proximal and mid RCA. PAST MEDICAL HISTORY: 1. Coronary artery disease. 2. Hypertension. 3. Hyperlipidemia. 4. Diabetes type 2. 5. Chronic obstructive pulmonary disease. 6. Tobacco abuse. She has not smoked since the last admission in February 2018. PAST SURGICAL HISTORY: The patient had a , right total knee replacement, vocal cord surgery, hysterectomy, and ovarian cyst. FAMILY HISTORY: Patient's both parents had history of coronary artery disease and diabetes. SOCIAL HISTORY: The patient is and has one child who is well. She is an ex-smoker, quit since February 2018. She denied EtOH or illicit drug abuse. ALLERGIES: SHE IS ALLERGIC TO LATEX AND MORPHINE. HOME MEDICATIONS: 1. Metformin 500 mg twice a day. 2. Aspirin 81 mg once a day. 3. Atorvastatin 40 mg once a day. 4. Carvedilol 6.25 mg twice a day. 5. Glipizide 5 mg once a day. 6. Lisinopril 5 mg twice a day. 7. Brilinta 90 mg twice a day. 8. Xanax 0.25 mg twice a day as needed. REVIEW OF SYSTEMS: 12-point review of systems negative. PHYSICAL EXAMINATION: VITAL SIGNS: Blood pressure 101/58, temperature 98.3; pulse is 62, sinus rhythm; respiratory rate 15, and O2 saturation 98% on room air. GENERAL: The patient is alert and oriented x4, not in acute distress. HEENT: head, normocephalic and atraumatic. Eyes, extraocular muscle movement intact. ENT and mouth, oral and nasal mucosa moist without lesion. Her voice is not hoarse. NECK: Normal range of motion. No JVD. Neck is supple. RESPIRATORY: Clear to auscultate bilaterally, but diminished at the bases. No rales, rhonchi, or wheezes noted. CARDIOVASCULAR: Regular rate and rhythm. Normal S1 and S2. There are no S3 or S4. No significant murmur, heaves, or thrills noted. Carotid pulses are present without bruit or thrill. 2+ pulses in the bilateral . EXTREMITIES: No edema. ABDOMEN: Soft, nontender. No mass to palpate. Bowel sounds are present. SKIN: Warm and dry. No lesion, rash, or hematoma noted. MUSCULOSKELETAL: The patient is able to move all extremities. The patient denied any claudication. PSYCHIATRIC: The patient is mildly anxious due to the chest pain. Otherwise, the patient's mood is appropriate. NEUROLOGIC: The patient is alert and oriented x4. Nonfocal. LABORATORY DATA: WBC 8.5, hemoglobin 11.8, hematocrit 36.1, and platelet 166. D-dimer 0.59. Chemistry showed a sodium of 137, potassium 4.1, BUN 15, creatinine 0.74, glucose 97, calcium 8.6. AST 10 and ALT 13. Troponin negative. UA is negative. Radiology, the patient's chest x-ray shows no evidence of acute cardiopulmonary disease. Next, chest and thoracic CTA, no evidence of pulmonary embolism. ASSESSMENT AND PLAN: 1. Coronary artery disease, status post stent placement to LAD in February 2018. The patient presents to the emergency department for chest pain, which is similar to the previous symptom prior to the cardiac catheterization and stent placement. The patient is going to undergo cardiac catheterization today, this afternoon by Dr. Son. She is on the telemetry and she is n.p.o. at this moment. 2. Hypertension. Her blood pressure is stable at this moment. 3. Dyslipidemia. The patient is on statin medication. 4. Diabetes type 2, which is managed by primary care doctor. 5. Chronic obstructive pulmonary disease, the respiratory status is stable with room air. 6. Tobacco abuse. Ex-smoker. She has not smoked since February 2018. Thank you for allowing the Cardiology Service to participate in the care of this patient. We will follow along the patient's care team and make further evaluation as appropriate. Job ID: [id number]
--- NOTE | 2018-03-30 07:58 | CON ---
DATE OF CONSULTATION: 03/29/2018 ADDENDUM: Please refer to the notes already dictated by my nurse practitioner, Lois Mckeon. INDICATION FOR CONSULTATION: A 52-year-old female who underwent a cardiac catheterization in 01/2018 after having chest discomfort. She was found to have a thrombus to the left anterior descending artery, underwent angioplasty and stent placement to the large left anterior descending artery. She presented again and complaining of chest discomfort, which is very similar to what she has had previously. She did not have any EKG changes. Cardiac enzymes are negative, but she continues to have chest discomfort. Given the fact that she has had a recent stent implant and had very similar symptoms, she will be advised to undergo repeat cardiac catheterization. PAST MEDICAL HISTORY: Significant for coronary artery disease, angioplasty and stent placement to the left anterior descending artery. She has a history of tobacco abuse. I believe she stops smoking since her stent placement. She has had ovarian cyst. She also has history of diabetes and hypertension. She has had right knee replacement. She has had a . She has had a vocal cord polyp removed. She has had a hysterectomy. She has had a hernia repair. ALLERGIES: SHE IS ALLERGIC TO LATEX AND MORPHINE. MEDICATIONS: Prior to admission include; 1. Metformin. 2. Aspirin. 3. Atorvastatin. 4. Coreg. 5. Glipizide. 6. Lisinopril. 7. Brilinta. 8. Xanax. REVIEW OF SYSTEMS: A 12-point review of systems is unremarkable except what is noted in the history of present illness. FAMILY HISTORY: Noncontributory PHYSICAL EXAMINATION: GENERAL: Reveals a well-developed, well-nourished female, in no acute distress. She says she still has some chest discomfort, which she describes as being more pressure type sensation across the anterior chest. VITAL SIGNS: Blood pressure is 108/58, heart rate 64 and regular. She is afebrile. Respiratory rate is 18. HEENT: Reveals the head to be normocephalic and atraumatic. Carotid pulses are present. There were no bruits. No JVD. The thyroid is not enlarged. Mucosa is pink and moist. CHEST: Clear. CARDIOVASCULAR: Reveals regular rate and rhythm with normal S1, S2. There is no S3 or S4. There were no significant murmurs, heaves, thrills, bruits, or rubs. ABDOMEN: Shows obesity with positive bowel sounds. No organomegaly or masses are noted. Femoral pulses are present. EXTREMITIES: No clubbing, cyanosis, or edema. NEUROLOGIC: She appears to be fully intact. SKIN: Warm and dry. LABORATORY DATA: Hemoglobin 13.7 with hematocrit of 39.9, WBC of 9.2. Her blood sugar is 97, potassium is 4.1, and sodium is 137. Cardiac enzymes are negative. There were no other significant abnormalities noted. EKG is unremarkable. IMPRESSION: A middle-aged female with a history of coronary artery disease, status post recent angioplasty and stent placement with similar symptoms what she had previously, undergoing angioplasty and stent placement back in January. Despite having no significant EKG changes or cardiac enzymes, given the symptoms are exactly the same, we will proceed with a cardiac catheterization to rule out evidence of in-stent restenoses, especially since this involves the large left anterior descending artery. I have explained the procedure and the risks to her to include bleeding, infection, possibly myocardial infarction, cerebrovascular accident, re-intubation, CO2 contrast reaction, and possibility of . She understands and agrees to proceed. We will plan for cardiac catheterization later today. Also for her diabetes and hypertension, this will be dealt with by the primary care service. They appeared to be under good control at this time. Job ID: [id number]
== END 2018-03-29 21:43 | disposition home or self-care (01) ==
LOC: ERS 14:23 → ERHOLD 17:14 → 2SW 18:21
PROVIDERS: ADMIT Internal Medicine; ATTEND Internal Medicine
PROC: 4A023N7 Measurement of Cardiac Sampling and Pressure, Left Heart, Percutaneous Approach (ICD-10-PCS; principal; 2018-03-29)
PROC: B2111ZZ Fluoroscopy of Multiple Coronary Arteries using Low Osmolar Contrast (ICD-10-PCS; 2018-03-29)
DX: R07.89 Other chest pain (principal); I25.10 Atherosclerotic heart disease of native coronary artery without angina pectoris; I25.2 Old myocardial infarction; E11.9 Type 2 diabetes mellitus without complications; J44.9 Chronic obstructive pulmonary disease, unspecified; I10 Essential (primary) hypertension; E66.9 Obesity, unspecified; Z68.32 Body mass index [BMI] 32.0-32.9, adult; Z87.891 Personal history of nicotine dependence; Z79.02 Long term (current) use of antithrombotics/antiplatelets; Z79.82 Long term (current) use of aspirin; Z79.84 Long term (current) use of oral hypoglycemic drugs; Z79.899 Other long term (current) drug therapy; Z88.5 Allergy status to narcotic agent; Z91.040 Latex allergy status; Z95.5 Presence of coronary angioplasty implant and graft
CPT/HCPCS: 36415; 36416; 71045; 71275; 80053; 81001; 82550; 83690; 84484; 85025; 85379; 93005; 93454; 93458; 94760; 96360; 96361; C1769; G0378; J1644; J1650

== ENCOUNTER 2018-07-27 17:50 | Observation (INO) | payer BC ==
--- NOTE | 2018-07-27 18:21 | RAD ---
Exam: Chest one view HISTORY:Chest pain Comparison: 03/28/2018 FINDINGS: Cardiac silhouette: Normal Pulmonary vessels: Normal Costophrenic angles: Clear LUNGS: No masses or consolidation. Pneumothorax: None Osseous abnormalities: None IMPRESSION: No acute cardiopulmonary process.
[2018-07-27 18:24] LABS: #Basophils 0.1 thou/uL (0.0-0.2); #Eosinphils 0.3 thou/uL (0.0-0.7); #Lymphocytes 3.5 thou/uL (1.20-3.40); #Monocytes 0.8 thou/uL (0.11-0.59); #Neutrophils 7.5 thou/uL (1.40-6.50); %Eosinophils 2.4 % (0.0-10.0); %Lymphocytes 28.4 % (21.0-51.0); %Monocytes 6.6 % (0.0-10.0); %Neutrophils 61.6 % (42.0-75.0); Hemoglobin 14.4 g/dL (12.0-16.0); Mean Corpuscular HGB CONC 33.8 g/dL (32.0-36.0); Mean Corpuscular Hemoglobin 30.1 pg (27.0-31.0); Mean Corpuscular Volume 89.3 fL (78.0-98.0); Mean Platelet Volume 9.6 fL (7.4-10.4); Platelet Count 203 thou/uL (130-400); RBC Distribution Width 12.5 % (11.5-14.5); Red Blood Cell (RBC) Count 4.76 mill/uL (4.20-5.40); White Blood Cell (WBC) Count 12.1 thou/uL (4.8-10.8)
[2018-07-27 18:49] LABS: ALT (SGPT) 18 U/L (8-55); AST (SGOT) 19 U/L (5-34); Albumin 4.2 g/dL (3.5-5.0); Alkaline Phosphatase 92 U/L (40-150); Anion Gap 15 mmol/L (10-20); BUN (Urea Nitrogen) 17 mg/dL (9.8-20.1); Bilirubin, Total 0.3 mg/dL (0.2-1.2); CK (CPK) 64 U/L (29-168); Calc. Creatinine Clearance 0 mL/min (70-130); Calcium 9.4 mg/dL (7.8-10.44); Carbon Dioxide 20 mmol/L (22-29); Chloride 104 mmol/L (98-107); Estimated GFR-MDRD 69; Globulin 3.1 g/dL (2.4-3.5); Glucose 229 mg/dL (70-105); Potassium 5.3 mmol/L (3.5-5.1); Protein, Total 7.3 g/dL (6.0-8.3); Sodium 134 mmol/L (136-145)
[2018-07-27] MEDS ORDERED: Aspirin Chewable 81 MG TAB ONE (19:25)
[2018-07-27] MEDS ORDERED: Nitroglycerin 0.4 MG TAB 1 EACH ONE (19:25)
[2018-07-27] MEDS ORDERED: Ondansetron ODT 4 MG TAB PO PRN (20:15)
[2018-07-27] MEDS ORDERED: Ondansetron PF 4 MG/2 ML Vial IVP PRN (20:15)
[2018-07-27] MEDS ORDERED: Acetaminophen 325 MG TAB PO PRN (20:15)
[2018-07-27] MEDS ORDERED: ALPRAZolam 0.25 MG TAB PO PRN (20:16)
[2018-07-27 20:48] LABS: Troponin I 0.011 ng/mL (< 0.028)
[2018-07-27 22:15] VITALS: BMI 34.2
--- NOTE | 2018-07-27 22:35 | HP ---
PRIMARY CARE DOCTOR: VALE Frank. CODE STATUS: Full code. TIME OF EVALUATION: 8:15 p.m. CHIEF COMPLAINT: Chest pain. HISTORY OF PRESENT ILLNESS: This is a 53-year-old female patient with past medical history of ovarian cyst, diabetes, hypertension, acute NC, with stent placement due to 100% blockage that happened in January 2018, came to the hospital after having severe chest pain. The patient said it was "like an elephant pushing on my chest" as reported by patient, with no clear triggers, no alleviating factors. The pain has been on and off for the past week, however today, it was associated with sweating, nausea, neck and jaw pain, she tells that is weird. No clear triggers, not alleviated with medications in the ER. REVIEW OF SYSTEMS: CONSTITUTIONAL: No fever, chills, or generalized weakness. RESPIRATORY: No cough, sputum production, or shortness of breath. CARDIOVASCULAR: The patient has chest pain. No palpitation. GASTROINTESTINAL: No nausea, no vomiting, diarrhea, or abdominal pain. CASINO WORKER: No dizziness, headache, or feeling lightheaded. GENITOURINARY: No burning on urination. EXTREMITIES: No leg swelling. All other systems were reviewed and negative except for the findings mentioned above. PAST MEDICAL HISTORY: Positive for: 1. Ovarian cyst. 2. Diabetes. 3. Hypertension. 4. NC with stent placement. PAST SURGICAL HISTORY: 1. x1. 2. Right knee replacement in 2014. 3. Vocal cord polyps removed. 4. History of hysterectomy. 5. Ovarian cyst. 6. Multiple surgeries. 7. Hernia repair. 8. Cardiac stents. PSYCH HISTORY: No previous psych history. SOCIAL HISTORY: No alcohol. No drugs. The patient is a former tobacco user, quit smoking the past year. FAMILY HISTORY: Father with history of cardiac aneurysm x3, unable to repair. Mother CABG x4, kidney cancer with no metastasis. KNOWN ALLERGIES: 1. Latex. 2. Morphine. REPORTED MEDICATIONS: 1. Lisinopril. 2. Metformin. 3. Glipizide. 4. Gabapentin. 5. Carvedilol. 6. Atorvastatin. 7. Brilinta. 8. Aspirin. PHYSICAL EXAMINATION: VITAL SIGNS: On presentation, blood pressure 139/77 with heart rate 83, respiratory rate 18, temperature 97.7, pain was 10/10, oxygen saturation 96% on room air. GENERAL APPEARANCE: The patient is alert, oriented, not in acute distress. HEENT: Eyes: Normal. ENT: Moist oral mucosa. Anicteric. NECK: No JVD. RESPIRATORY: Bilateral air entry. No rales. No wheezing. Symmetric expansion. CARDIOVASCULAR: Normal rate, regular rhythm. No murmurs. No gallop. No edema. ABDOMEN: Soft. Normal bowel sounds. MUSCULOSKELETAL: Baseline range of motion and strength. No tenderness. SKIN: Warm, intact. No pallor. No rash. No redness. Peripheral pulses are present. Capillary refill seems to be intact. NEURO: No evidence of any new focal weakness. Baseline speech. Cranial nerves seems to be intact. PSYCH: The patient is in good mood. No anxiety. Optimal judgment. DIAGNOSTIC DATA: EKG was reviewed. The patient has normal sinus rhythm with a rate of 85 with TN 156, QRS duration 82, QT corrected 426, normal sinus rhythm. Chest x-ray was reviewed. The patient has no acute cardiopulmonary process. LABORATORY DATA: Reviewed. The patient has white count of 12.1, hemoglobin 14.4, MCV 89.3, platelet count 203. Chemistry: Sodium 134, potassium 5.3, chloride 104, carbon dioxide 29, anion gap 15, BUN 17, creatinine 0.85, GFR 69, glucose 229, calcium 9.4, magnesium 2.6. LFTs were negative. Troponin 0.011. Albumin 4.2, globulin 3.1, albumin globulin ratio is 1.4. ASSESSMENT AND PLAN: The patient will be placed in the hospital with the following medical problems: 1. Chest pain, rule out acute coronary syndrome. The patient has a strong history with recent myocardial infarction in January, seen by Dr. Son, status post stent due to 100% stenosis and obstruction. The patient will be monitored. We will trend troponins. We will treat symptoms. As of now, troponin is negative and we will consult Dr. Son in the morning given high risk and high pretest probability for stress test, so we will defer any decision for management to Cardiology. 2. Uncontrolled hypertension. The patient has presented with systolic blood pressure of 139 and 140s. We will reconcile home medications, we will adjust treatment as needed. 3. Uncontrolled diabetes with blood sugar of 229, hyperglycemia. We will place the patient on sliding scale for optimal control. 4. Deep venous thrombosis prophylaxis. Job ID: [id number]
[2018-07-27] MEDS: Lisinopril 5 MG TAB PO SCH (22:55)
[2018-07-27] MEDS: Carvedilol 6.25 MG TAB PO SCH (22:55)
[2018-07-27] MEDS: Atorvastatin Calcium 40 MG TAB PO SCH (22:55)
[2018-07-27] MEDS: TICAGRELOR 90 MG TABLET PO SCH (22:55)
[2018-07-27] MEDS ORDERED: HYDROcodone/Acetaminophen 5/325 mg Tablet PO SCH (23:00)
[2018-07-27] MEDS ORDERED: Nitroglycerin 2% Ointment 1 INCH/1 GM Packet TOP SCH (23:00)
[2018-07-28 00:55] LABS: Troponin I Less than 0.010 ng/mL (< 0.028)
[2018-07-28 05:45] LABS: #Basophils 0.1 thou/uL (0.0-0.2); #Eosinphils 0.3 thou/uL (0.0-0.7); #Lymphocytes 3.7 thou/uL (1.20-3.40); #Monocytes 0.9 thou/uL (0.11-0.59); #Neutrophils 5.3 thou/uL (1.40-6.50); %Basophils 0.8 % (0.0-1.0); %Eosinophils 2.8 % (0.0-10.0); %Lymphocytes 35.9 % (21.0-51.0); %Monocytes 8.6 % (0.0-10.0); %Neutrophils 51.9 % (42.0-75.0); Mean Corpuscular HGB CONC 32.5 g/dL (32.0-36.0); Mean Corpuscular Hemoglobin 29.6 pg (27.0-31.0); Mean Platelet Volume 9.6 fL (7.4-10.4); Platelet Count 175 thou/uL (130-400); RBC Distribution Width 12.5 % (11.5-14.5); Red Blood Cell (RBC) Count 4.39 mill/uL (4.20-5.40); White Blood Cell (WBC) Count 10.2 thou/uL (4.8-10.8)
[2018-07-28] MEDS ORDERED: HumaLOG 300 UNITS/3 ML VIAL SC PRN ×2 (05:47)
[2018-07-28] MEDS ORDERED: Dextrose 5% in Water 1,000 ML IV PRN (05:47)
[2018-07-28] MEDS ORDERED: Dextrose 50% Abboject 50 ML SYRINGE IVP PRN (05:47)
[2018-07-28 06:04] LABS: Anion Gap 12 mmol/L (10-20); BUN (Urea Nitrogen) 15 mg/dL (9.8-20.1); Calc. Creatinine Clearance 121 mL/min (70-130); Calcium 8.9 mg/dL (7.8-10.44); Carbon Dioxide 23 mmol/L (22-29); Chloride 104 mmol/L (98-107); Estimated GFR-MDRD 74; Glucose 201 mg/dL (70-105); Potassium 4.3 mmol/L (3.5-5.1); Sodium 135 mmol/L (136-145)
[2018-07-28] MEDS ORDERED: Aspirin Chewable 81 MG TAB PO SCH (09:00)
[2018-07-28] MEDS ORDERED: Enoxaparin Sodium 40 MG/0.4 ML SYRINGE SC SCH (09:00)
[2018-07-28] MEDS ORDERED: Nitroglycerin 2% Ointment 1 INCH/1 GM Packet TOP SCH (09:00)
[2018-07-28] MEDS: TICAGRELOR 90 MG TABLET PO SCH ×2 (10:07→20:07)
[2018-07-28] MEDS: Lisinopril 5 MG TAB PO SCH ×2 (10:07→20:07)
[2018-07-28] MEDS: traMADol HCl 50 MG TAB PO PRN ×3 (11:59→20:08)
[2018-07-28] MEDS: Carvedilol 6.25 MG TAB PO SCH ×2 (12:02→20:07)
--- NOTE | 2018-07-28 13:23 | PDOC.PN ---
- Subjective Encounter Start Date: 07/28/18 Encounter Start Time: 13:21 Subjective: complains of continous chest pain and SOB -: ongoing for weeks/months - Objective Resuscitation Status - Order Detail: 07/27/18 20:15 Resuscitation Status Routine Resuscitation Status: FULL: Full Resuscitation MAR Reviewed: Yes Vital Signs & Weight: Vital Signs (12 hours) Temp Pulse Resp BP Pulse Ox 07/28/18 12:08 97.9 F 76 16 118/78 94 L 07/28/18 10:07 74 07/28/18 08:07 97.9 F 74 16 106/55 L 98 07/28/18 03:37 98.4 F 77 13 118/66 97 Weight Weight 212 lb 3.2 oz I&O: 07/27/18 07/28/18 07/29/18 06:59 06:59 06:59 Intake Total 240 600 Output Total 525 600 Balance -285 0 Result Diagrams: 07/28/18 04:30 07/28/18 04:30 Additional Labs: Accuchecks 07/27/18 22:19 POC Glucose 183 H Laboratory Tests 07/27/18 07/28/18 18:07 04:30 Potassium 5.3 H 4.3 Phys Exam - Physical Examination Constitutional: NAD agitated HEENT: PERRLA, moist MMs, sclera anicteric, oral pharynx no lesions Neck: no nodes, no JVD, supple, full ROM Respiratory: no wheezing, no rales, no rhonchi, clear to auscultation bilateral Cardiovascular: RRR, no significant murmur Gastrointestinal: soft, non-tender, no distention, positive bowel sounds Musculoskeletal: no edema, pulses present Neurological: non-focal, normal sensation, moves all 4 limbs Psychiatric: normal affect, A&O x 3 Skin: no rash Dx/Plan (1) Chest pain Code(s): R07.9 - CHEST PAIN, UNSPECIFIED Status: Acute Comment: negative troponin,NL EKG.suspect non cardiac causes Vs Angina. recent work up negative in 03/2018.await cardiology recs (2) CAD (coronary artery disease) Code(s): I25.10 - ATHSCL HEART DISEASE OF [place] CORONARY ARTERY W/O ANG PCTRS Status: Acute (3) DM type 2 (diabetes mellitus, type 2) Status: Acute Qualifiers: Comment: new onset (4) COPD (chronic obstructive pulmonary disease) Status: Chronic Qualifiers: (5) Dyslipidemia Code(s): E78.5 - HYPERLIPIDEMIA, UNSPECIFIED Status: Chronic (6) Hypertension Code(s): I10 - ESSENTIAL (PRIMARY) HYPERTENSION Status: Chronic Qualifiers: (7) Tobacco abuse Code(s): Z72.0 - TOBACCO USE Status: Chronic - Plan DVT proph w/SCDs HD stable -: cont ASA,statin,BB,alia-I.may need to add anti anginal like Imdur -: await final cardiology recs -: suspect non cardiac causes as well * . Review of Systems - Review of Systems Constitutional: negative: fever, chills, sweats, weakness, malaise, other ENT: negative: Ear Pain, Ear Discharge, Nose Pain, Nose Discharge, Nose Congestion, Mouth Pain, Mouth Swelling, Throat Pain, Throat Swelling, Other Respiratory: SOB with Excertion. negative: Cough, Dry, Shortness of Breath, Hemoptysis, Pleuritic Pain, Sputum, Wheezing Cardiovascular: chest pain. negative: palpitations, orthopnea, paroxysmal nocturnal dyspnea, edema, light headedness, other Gastrointestinal: negative: Nausea, Vomiting, Abdominal Pain, Diarrhea, Constipation, Melena, Hematochezia, Other Genitourinary: negative: Dysuria, Frequency, Incontinence, Hematuria, Retention , Other Musculoskeletal: negative: Neck Pain, Shoulder Pain, Arm Pain, Back Pain, Hand Pain, Leg Pain, Foot Pain, Other Skin: negative: Rash, Lesions, Oliver, Bruising, Other Neurological: negative: Weakness, Numbness, Incoordination, Change in Speech, Confusion, Seizures, Other - Medications/Allergies Allergies/Adverse Reactions: Allergies Allergy/AdvReac Type Severity Reaction Status Date / Time latex Allergy throat Verified 07/27/18 22:20 swells shut morphine AdvReac Mild Mean,anger Verified 07/27/18 22:20 Medications: Current Medications Acetaminophen (Tylenol) 650 mg PO Q4H PRN PRN Reason: Headache/Fever/Mild Pain (1-3) Last Admin: 07/28/18 03:32 Dose: 650 mg Alprazolam (Xanax) 0.25 mg PO BIDPRN PRN PRN Reason: Anxiety Last Admin: 07/28/18 03:32 Dose: 0.25 mg Aspirin (Aspirin Chewable) 81 mg PO DAILY [facility], [facility] Last Admin: 07/28/18 10:08 Dose: 81 mg Atorvastatin Calcium (Lipitor) 40 mg PO HS [facility], [facility] Last Admin: 07/27/18 22:55 Dose: 40 mg Carvedilol (Coreg) 6.25 mg PO BID [facility] Last Admin: 07/28/18 12:02 Dose: Not Given Dextrose/Water (Dextrose 50%) 25 gm IVP PRN PRN PRN Reason: HYPOGLYCEMIA PROTOCOL Enoxaparin Sodium (Lovenox) 40 mg SC 0900 [facility] Last Admin: 07/28/18 10:09 Dose: Not Given Glucagon (Glucagon) 1 mg IM PRN PRN PRN Reason: HYPOGLYCEMIA PROTOCOL Dextrose/Water (D5w) 1,000 mls @ 0 mls/hr IV INF PRN PRN Reason: HYPOGLYCEMIA PROTOCOL Insulin Human Lispro (Humalog) 0 units SC .MILD SLIDING SCALE PRN; Protocol PRN Reason: MILD SLIDING SCALE Insulin Human Lispro (Humalog) 0 units SC .BEDTIME SLIDING SC PRN; Protocol PRN Reason: BEDTIME SLIDING SCALE Lisinopril (Zestril) 5 mg PO BID [facility] Last Admin: 07/28/18 10:07 Dose: 5 mg Ondansetron HCl (Zofran Odt) 4 mg PO Q6H PRN PRN Reason: Nausea/Vomiting Ondansetron HCl (Zofran) 4 mg IVP Q6H PRN PRN Reason: Nausea/Vomiting Ticagrelor (Brilinta) 90 mg PO BID [facility] Last Admin: 07/28/18 10:07 Dose: 90 mg Tramadol HCl (Ultram) 50 mg PO Q4H PRN PRN Reason: Moderate Pain (4-6) Last Admin: 07/28/18 11:59 Dose: 50 mg
[2018-07-28] MEDS: Atorvastatin Calcium 40 MG TAB PO SCH (20:07)
[2018-07-29] MEDS: traMADol HCl 50 MG TAB PO PRN (03:08)
[2018-07-29 08:41] VITALS: BP 146/77; TEMP 98.3
[2018-07-29] MEDS ORDERED: Aspirin Chewable 81 MG TAB PO SCH (21:00)
--- NOTE | 2018-07-30 07:40 | DIS ---
DATE OF ADMISSION: 07/27/2018 DATE OF DISCHARGE: 07/29/2018 PRIMARY CARE PROVIDER: Cielo Linton. FINAL DIAGNOSES: Atypical chest pain, coronary artery disease, diabetes mellitus type 2, dyslipidemia, hypertension, tobacco abuse. DISCHARGE MEDICINES: Same as home medicines. 1. Gabapentin 300 mg p.o. t.i.d. p.r.n. 2. Aspirin 81 mg a day. 3. Lipitor 40 mg a day. 4. Lisinopril 5 mg a day. 5. Coreg 6.25 mg twice a day. 6. Metformin 500 mg p.o. b.i.d. 7. Glipizide 5 mg a day. 8. Brilinta 90 mg p.o. b.i.d. ALLERGIES: MORPHINE. PENDING AT TIME OF DISCHARGE: Nothing. CODE STATUS: Full. DIET: Diabetic. HOSPITAL COURSE: The patient presented with continuous chest pain described as right, left, radiating to her neck into her jaws, is continuous. She has recently been evaluated with cardiac cath in March of this year with no critical lesions. Her physical examination was unremarkable. Laboratory included normal troponin x3. Comp metabolic profile initially had a potassium of 5.3, followup was 4.3. Blood sugars were in the 100 to 200 range. Vital signs were variable, but unremarkable. Blood pressures ranging from 111/59 to 157/85, pulse in the 70 to 90 range. The patient declined to see Dr. Tamayo this morning. I was asked to have brief discussion with the patient of her status. She said that she would prefer to be discharged now and to follow up herself with Dr. Son tomorrow. As her chest pain is totally atypical for cardiac pain and cardiac enzymes are normal, I agreed. I have written her discharge followup with Dr. Son' office tomorrow. CONDITION: Good. Job ID: [id number] MTDD
--- NOTE | 2018-08-04 16:04 | EKG ---
Test Reason : Blood Pressure : / mmHG Vent. Rate : 085 BPM Atrial Rate : 085 BPM P-R Int : 156 ms QRS Dur : 082 ms QT Int : 358 ms P-R-T Axes : 055 -10 021 degrees QTc Int : 426 ms Normal sinus rhythm Minimal voltage criteria for LVH, may be normal variant Possible Inferior infarct , age undetermined Cannot rule out Anteroseptal infarct , age undetermined Abnormal ECG Confirmed by CHUCKIE CHANDLER ([id number]), editor [place] ([id number]) on 08/04/2018 4:04:22 PM Referred By: Confirmed By:CHUCKIE CHANDLER
== END 2018-07-29 09:13 | disposition home or self-care (01) ==
LOC: ERS 17:50 → 2SW 19:27
PROVIDERS: ADMIT Hospitalist; ATTEND Hospitalist
DX: R07.89 Other chest pain (principal); I10 Essential (primary) hypertension; E11.9 Type 2 diabetes mellitus without complications; I25.2 Old myocardial infarction; J44.9 Chronic obstructive pulmonary disease, unspecified; E78.5 Hyperlipidemia, unspecified; Z87.891 Personal history of nicotine dependence; Z79.02 Long term (current) use of antithrombotics/antiplatelets; Z79.82 Long term (current) use of aspirin; Z79.84 Long term (current) use of oral hypoglycemic drugs; Z79.899 Other long term (current) drug therapy; Z88.5 Allergy status to narcotic agent; Z91.040 Latex allergy status; Z95.5 Presence of coronary angioplasty implant and graft
CPT/HCPCS: 36415; 36416; 71045; 80048; 80053; 82550; 83735; 84484; 85025; 93005; 94760; G0378; J1650

== ENCOUNTER 2018-09-24 09:26 | Outpatient (CLI) | payer BC ==
--- NOTE | 2018-09-24 10:22 | CT ---
EXAM: Brain CTWithout contrast: HISTORY: Visual changes after a heart catheterization. Minimal headache COMPARISON: None FINDINGS: No focal mass or midline shift. No intra or extra-axial hemorrhage. Sinuses and mastoids are clear of acute process. IMPRESSION: No mass or bleed or other significant acute intracranial process. Given concern for the possibility of acute infarct, follow-up brain MRI without IV contrast is recomm ended for further assessment. Findings discussed with Dr. Son at 10:15 AM CODE CR
--- NOTE | 2018-09-24 13:18 | MRI ---
EXAM: Brain MRI Without contrast: HISTORY: Vision and mental status changes following a heart catheter today with concern for CVA COMPARISON: Head CT 09/24/2018 FINDINGS: Multiplanar multisequence MRI examination of the brain is performed. The ventricles are within normal limits of size shape and position. No mass or midline shift. No evidence for intra or extra-axial hemorrhage. No evidence for abnormal restricted diffusion. No evidence for acute infarct. Normal-appearing flow voids are noted. The extracranial soft tissues and calvarial marrow signal appear within normal limits. Visualized sinuses and mastoids are unremarkable. Minimal scattered chronic white matter ischemic changes. IMPRESSION: No significant acute intracranial process. No mass or bleed. No acute infarct.
== END 2018-09-24 09:27 | disposition home or self-care (01) ==
LOC: CT 09:26
PROVIDERS: ATTEND Internal Medicine Cardiovascular Disease
DX: H53.9 Unspecified visual disturbance (principal); R41.82 Altered mental status, unspecified
CPT/HCPCS: 70450; 70551

== ENCOUNTER 2018-09-27 10:58 | Emergency (ER) | payer BC ==
[2018-09-27 11:35] LABS: #Eosinphils 0.3 thou/uL (0.0-0.7); #Lymphocytes 2.9 thou/uL (1.20-3.40); #Monocytes 0.4 thou/uL (0.11-0.59); #Neutrophils 4.8 thou/uL (1.40-6.50); %Basophils 0.2 % (0.0-1.0); %Lymphocytes 34.5 % (21.0-51.0); %Monocytes 4.3 % (0.0-10.0); %Neutrophils 58.1 % (42.0-75.0); Hemoglobin 13.3 g/dL (12.0-16.0); Mean Corpuscular HGB CONC 33.5 g/dL (32.0-36.0); Mean Corpuscular Hemoglobin 29.3 pg (27.0-31.0); Mean Corpuscular Volume 87.3 fL (78.0-98.0); Mean Platelet Volume 10.1 fL (7.4-10.4); Platelet Count 167 thou/uL (130-400); RBC Distribution Width 12.3 % (11.5-14.5); Red Blood Cell (RBC) Count 4.53 mill/uL (4.20-5.40); White Blood Cell (WBC) Count 8.3 thou/uL (4.8-10.8)
[2018-09-27 12:01] LABS: ALT (SGPT) 35 U/L (8-55); AST (SGOT) 28 U/L (5-34); Albumin 4.3 g/dL (3.5-5.0); Alkaline Phosphatase 89 U/L (40-150); Anion Gap 15 mmol/L (10-20); BUN (Urea Nitrogen) 7 mg/dL (9.8-20.1); Bilirubin, Total 0.5 mg/dL (0.2-1.2); CK (CPK) 102 U/L (29-168); Calc. Creatinine Clearance 0 mL/min (70-130); Calcium 9.5 mg/dL (7.8-10.44); Carbon Dioxide 24 mmol/L (22-29); Chloride 104 mmol/L (98-107); Estimated GFR-MDRD 72; Globulin 2.7 g/dL (2.4-3.5); Glucose 246 mg/dL (70-105); Potassium 4.5 mmol/L (3.5-5.1); Sodium 138 mmol/L (136-145)
[2018-09-27] MEDS ORDERED: Ondansetron ODT 4 MG TAB ONE (13:06)
[2018-09-27] MEDS ORDERED: Metoclopramide HCl 10 MG/2 ML VIAL ONE (14:32)
[2018-09-27] MEDS ORDERED: Ketorolac Tromethamine 30 MG/ML VIAL ONE (14:32)
[2018-09-27] MEDS ORDERED: diphenhydrAMINE 50 MG/ML VIAL ONE (14:32)
--- NOTE | 2018-09-27 16:32 | CT ---
CTA HEAD WITH AND WITHOUT CONTRAST: INDICATIONS: Right-sided facial numbness and right blurred vision. COMPARISON: CT brain from 09/24/2018 and MRI brain from 09/24/2018 showed no acute abnormality. TECHNIQUE: Multiple axial tomograms obtained through the head without IV enhancement. This was followed by a CT A head following angio protocol with multiplanar reconstruction and 3D post processing. FINDINGS: CT head without contrast shows no evidence of hemorrhage, mass, or infarct. No acute process. CTA head shows intracranial internal carotid arteries are patent and symmetric. Middle cerebral eb migue appear patent and symmetric. Anterior cerebral arteries are patent and symmetric. Basilar eb ry is patent. Posterior cerebrals appear symmetric. IMPRESSION: Unremarkable computed tomography angiography cerebral circulation. CTA NECK WITH AND WITHOUT CONTRAST: INDICATIONS: Facial numbness and weakness. Blurred vision. TECHNIQUE: Axial tomograms obtained with multiplanar reconstruction and 3D post processing. FINDINGS: No stenosis at the origin of the arch vessels. The common carotids are patent and symmetric. Mild atherosclerotic changes are seen at the bulbs bilaterally. Calcified plaque is seen bilaterally , more prominent on the left, and there is also associated soft plaque; however, there is no evidence of significant stenosis identified in either internal carotid artery. The vertebral arteries are patent and symmetric. Review of the soft tissues reveal nonspecific bilateral cervical chain adenopathy and submandibular a denopathy. The palatine tonsils are prominent for age. IMPRESSION: 1. There are atherosclerotic changes seen in both proximal internal carotid arteries; however, no ev idence of internal carotid artery stenosis. 2. Abnormal bilateral cervical chain adenopathy and prominent tonsillar tissue at the Waldeyer's rin g. Lymphoma would be a consideration. Recommend clinical correlation and further evaluation as lance cated. POS: [facility]
--- NOTE | 2018-09-29 13:24 | EKG ---
Test Reason : Blood Pressure : / mmHG Vent. Rate : 076 BPM Atrial Rate : 076 BPM P-R Int : 170 ms QRS Dur : 086 ms QT Int : 400 ms P-R-T Axes : 067 -07 022 degrees QTc Int : 450 ms Normal sinus rhythm Minimal voltage criteria for LVH, may be normal variant Anteroseptal infarct , age undetermined Abnormal ECG Confirmed by TUSHAR MUNOZ M.D. ([id number]), film and video editor TOÑITO ARENAS ([id number]) on 09/29/2018 1:24:04 PM Referred By: Confirmed By:TUSHAR MUNOZ M.D.
== END 2018-09-27 17:08 | disposition home or self-care (01) ==
LOC: ERS 10:58
DX: R51 Headache (principal); R20.2 Paresthesia of skin; I10 Essential (primary) hypertension; E11.9 Type 2 diabetes mellitus without complications; I25.2 Old myocardial infarction; Z87.891 Personal history of nicotine dependence; Z79.84 Long term (current) use of oral hypoglycemic drugs; Z79.82 Long term (current) use of aspirin; Z79.899 Other long term (current) drug therapy
CPT/HCPCS: 36415; 70496; 70498; 80053; 82550; 84484; 85025; 93005; 94760; 96365; 96366; 96375; J1200; J1885; J2765; Q0162

== ENCOUNTER 2018-11-27 12:00 | Outpatient (CLI) | payer BC ==
--- NOTE | 2018-11-27 14:19 | PET ---
EXAM: PET SCAN WITH CT ATTENUATION CORRECTION: 11/27/18 HISTORY: Enlarged cervical lymph nodes. COMPARISON: None. CORRELATION: CT angiogram of the head and neck 09/27/18. TECHNIQUE: PET scan with CT attenuation correction is performed from the base of the brain to the proximal thigh s following the intravenous administration of 11.7 millicuries of [id number]. FINDINGS: HEAD AND NECK: There is mild FDG avidity involving the right palatine tonsil with maximum SUV of 3.3. There is mild FDG avidity of the left palatine tonsil with a maximum SUV of 3.5. No additional areas of abnormal FDG localization. CHEST: No abnormal FDG localization. ABDOMEN AND PELVIS: No abnormal FDG localization. Physiologic distribution is noted. OSSEOUS STRUCTURES: No abnormal FDG localization. IMPRESSION: Mild FDG avidity involving the left and right palatine tonsils. Findings may be due to reactive proce ss due to infection/inflammation. Consider ENT consultation for possible biopsy. POS: [facility]
== END 2018-11-27 12:01 | disposition home or self-care (01) ==
LOC: PET 12:00
PROVIDERS: ATTEND Radiology Radiation Oncology
DX: R59.0 Localized enlarged lymph nodes (principal)
CPT/HCPCS: 78815; A9552

== ENCOUNTER 2019-10-19 00:08 | Emergency (ER) | payer BC, SELFPAY ==
[2019-10-19] MEDS ORDERED: HYDROcodone/Acetaminophen 5/325 mg Tablet ONE (00:35)
--- NOTE | 2019-10-19 07:43 | RAD ---
XR Foot Lt 3 View STANDARD History: Injury. Comparison: None. Findings: Transversely oriented fracture of small toe proximal phalanx neck with lateral displacement one half shaft width. Moderate plantar calcaneal spur. Subtle widening of the Lisfranc interval. Dorsal soft tissue edema the midfoot. Concern for a laceration along the lateral aspect of the forefo ot. Impression: 1. Mildly displaced transversely oriented fracture proximal phalanx neck small toe. 2. Mild widening of the Lisfranc interval. Recommend correlation focal tenderness. Patient is focally tender, MRI recommended.
--- NOTE | 2019-10-19 07:44 | RAD ---
XR Ankle Lt 3 View STANDARD History: Injury. Laceration Comparison: None. Findings: Old deltoid ligament injury. No acute displaced fracture or malalignment. Moderate plantar calcaneal spur. Impression: Old deltoid ligament injury. No acute osseous abnormality of the ankle.
== END 2019-10-19 02:09 | disposition home or self-care (01) ==
LOC: ERS 00:08
DX: S92.512A Displaced fracture of proximal phalanx of left lesser toe(s), initial encounter for closed fracture (principal); E11.9 Type 2 diabetes mellitus without complications; I10 Essential (primary) hypertension; I25.2 Old myocardial infarction; Z87.891 Personal history of nicotine dependence; Z79.84 Long term (current) use of oral hypoglycemic drugs; Z79.82 Long term (current) use of aspirin; Z79.899 Other long term (current) drug therapy; Z79.891 Long term (current) use of opiate analgesic; V22.4XXA Motorcycle driver injured in collision with two- or three-wheeled motor vehicle in traffic accident, initial encounter
CPT/HCPCS: 12001